=== PATIENT | female | born 1955 | race Caucasian/White ===

== ENCOUNTER 2017-05-16 09:33 | Inpatient (IN) | payer MEDICARE ==
[~2017-05-16] VITALS: Ht 167.6 cm; Wt 91.0 kg
[2017-05-16] VITALS (21 sets, daily range): BP systolic 114–211; BP diastolic 60–117; PULSE 101–134; RESP 12–24; TEMP 97.6–98.9; O2SAT 85–99
[2017-05-16] MEDS: SODIUM CHLOR 0.9% 1000 ML INJ 1,000 ML IV SCH ×2 (09:39→10:55)
[2017-05-16] MEDS ORDERED: SODIUM CHLOR 0.9% 1000 ML INJ 1,000 ML IV ONE (09:39)
[2017-05-16] MEDS ORDERED: SODIUM CHLORIDE 0.9% FLUSH 10 ML FLUSH IVF PRN (09:45)
[2017-05-16] MEDS ORDERED: MIDAZOLAM HCL 5 MG/ML VIAL (1 ML) IV PUSH ONE (09:45)
[2017-05-16] MEDS ORDERED: PROPOFOL 500 MG/50 ML BTL IV ONE ×2 (09:45→10:45)
[2017-05-16] MEDS ORDERED: PROPOFOL 200 MG/20 ML AMP IV ONE (09:45)
[2017-05-16] MEDS ORDERED: SUCCINYLCHOLINE CHLORIDE 200 MG/10 ML VIAL IV PUSH ONE (09:45)
[2017-05-16] MEDS ORDERED: ETOMIDATE 20 MG/10 ML VIAL IVP ONE (09:45)
[2017-05-16 10:11] LABS: CHLORIDE 96 MEQ/L (98-107); SODIUM (NA) 137 MEQ/L (136-145)
[2017-05-16 10:14] LABS: CALCIUM 8.2 MG/DL (8.5-10.1)
[2017-05-16 10:15] LABS: ALBUMIN 3.5 GM/DL (3.4-5.0); BICARBONATE 26.3 MEQ/L (21.0-32.0); BLOOD UREA NITROGEN 22 MG/DL (7-18); GLUCOSE,RANDOM 291 MG/DL (74-106)
[2017-05-16 10:16] LABS: AUTOMATED NEUTROPHIL # 26.2 TH/MM3 (1.8-7.7); BASOPHIL # 0.1 TH/MM3 (0-0.2); BASOPHIL % 0.4 % (0.0-2.0); EOSINOPHIL % 0.1 % (0.0-4.0); HEMOGLOBIN 13.7 GM/DL (11.6-15.3); LYMPH % 15.1 % (9.0-44.0); MEAN CELL VOLUME 88.2 FL (80.0-100.0); MEAN CORPUSCULAR HEMOGLOBIN 28.2 PG (27.0-34.0); MEAN PLATELET VOLUME 7.9 FL (7.0-11.0); MONO % 5.5 % (0.0-8.0); MONOCYTE # 1.8 TH/MM3 (0-0.9); NEUT % 78.9 % (16.0-70.0); PLATELET COUNT 394 TH/MM3 (150-450); RED BLOOD COUNT 4.87 MIL/MM3 (4.00-5.30); RED CELL DISTRIBUTION WIDTH 15.5 % (11.6-17.2); WHITE BLOOD COUNT 33.1 TH/MM3 (4.0-11.0)
[2017-05-16 10:18] LABS: ALT (GPT) 24 U/L (10-53); AST (GOT) 18 U/L (15-37); GLOMERULAR FILTRATION RATE 35 ML/MIN (>89)
[2017-05-16 10:19] LABS: TOTAL BILIRUBIN ADULT 0.1 MG/DL (0.2-1.0)
[2017-05-16 10:20] LABS: TOTAL PROTEIN 7.2 GM/DL (6.4-8.2)
[2017-05-16 10:21] LABS: ALKALINE PHOSPHATASE 110 U/L (45-117)
[2017-05-16 10:22] LABS: INTERNATIONAL NORMALIZED RATIO 0.9 RATIO; PROTHROMBIN TIME - PATIENT 9.4 SEC (9.8-11.6)
[2017-05-16 10:23] LABS: TROPONIN I 0.06 NG/ML (0.02-0.05)
--- NOTE | 2017-05-16 10:38 | RADRPT ---
EXAM DATE/TIME: 05/16/2017 10:07 [facility] COMPARISON: No previous studies available for comparison. INDICATIONS : Post Tube placement. MEDICAL HISTORY : None. SURGICAL HISTORY : None. ENCOUNTER: Initial ACUITY: 1 day PAIN SCORE: Non-responsive. LOCATION: Bilateral chest FINDINGS: An endotracheal tube has its tip 4 summer's above the abhinav. A nasogastric has tip below diaphragm. Diffuse pulmonary infiltrates are noted bilaterally consistent with moderate pulmonary edema versus p neumonia. The heart is mildly prominent. CONCLUSION: Diffuse pulmonary infiltrates bilaterally consistent with moderate pulmonary edema versus pneumonia. Nasir Stanton MD on May 16, 2017 at 10:35 Board Certified Radiologist. This report was verified electronically.
[2017-05-16 10:51] LABS: BANDS 1 % (0-6); LYMPHOCYTES 10 % (9-44); MONOCYTES 7 % (0-8); NEUTROPHIL # MANUAL DIFF 27.5 TH/MM3 (1.8-7.7); POLYS (SEG NEUTROPHILS) 82 % (16-70)
--- NOTE | 2017-05-16 10:56 | PD ---
HPI Chief Complaint: Respiratory Distress Time Seen by Provider: 09:39 Travel History International Travel<30 days: No Contact w/Intl Traveler<30days: No Traveled to known affect area: No History of Present Illness HPI The patient is approximately 58 years old and arrives by EMS due to altered mental status. She had a fall this morning and was unresponsive thus prompting EMS evaluation. On scene the patient was found to have a pulse however GCS was about 6. Assisted ventilations were performed and route to the ER. Patient is noted to have multiple sclerosis. The EMS end-tidal CO2 revealed levels in the 70s. O2 sat remained in the 80s en route here. History limited upon patient's arrival due to unresponsive state and lack of identification. [facility] Social History Tobacco Use: Yes (family reports 1PPD or greater smoking) Allergies-Medications (Allergen,Severity, Reaction): Coded Allergies: No Allergy Information Available (Unverified , 05/16/17) Review of Systems ROS Limitations: Clinical Condition, Altered Mental Status, Unresponsive Physical Exam Narrative GENERAL: Approximate 58-year-old female unresponsive GCS 4 (motor 2, eyes 1, verbal 1) SKIN: Warm and dry. HEAD: Atraumatic. Normocephalic. EYES: Pupils are about 1 cm bilaterally and responsive to light. There is a conjugate gaze. ENT: No nasal bleeding or discharge. Mucous membranes pink and moist. Bloody frothy sputum is noted. NECK: Trachea midline. No JVD. CARDIOVASCULAR: Tachycardia approximately 130. Regular rhythm. RESPIRATORY: Patient's breathing about 30 breaths a minute. Frothy sputum again noted with blood tingeing. GASTROINTESTINAL: Abdomen soft, non-tender, nondistended. Hepatic and splenic margins not palpable. MUSCULOSKELETAL: Extremities without clubbing, cyanosis, or edema. No obvious deformities. NEUROLOGICAL: GCS 4 (motor 2, eyes 1, verbal 1). Occasional flexion-extension of the right lower extremity observe. Pupils reactive to light. Jaw flexion observed with attempts to intubate. PSYCHIATRIC: Appropriate mood and affect; insight and judgment normal. Data Data Last Documented VS Vital Signs Date Time Temp Pulse Resp B/P (MAP) Pulse Ox O2 Delivery O2 Flow Rate FiO2 05/16/17 11:40 96 100 05/16/17 11:27 134 207/118 05/16/17 11:00 18 Ventilator 05/16/17 10:30 97.6 Orders Orders Chest, Single Ap (05/16/17:39) Arterial Blood Gas (Abg) (05/16/17:39) Ecg Monitoring (05/16/17:39) Iv Access Insert/Monitor (05/16/17:39) Ng Gastric Tube Insert/Monitor (05/16/17:39) Urinary Catheter Insert/Apply (05/16/17:39) Oximetry (05/16/17:39) Oxygen Administration (05/16/17:39) Etomidate Inj (Amidate Inj) (05/16/17:45) Fentanyl Inj (Fentanyl Inj) (05/16/17:45) Succinylcholine Inj (Quelicin Inj) (05/16/17:45) Midazolam Inj (Versed Inj) (05/16/17:45) Sodium Chloride 0.9% Flush (Ns Flush) (05/16/17:45) Sodium Chlor 0.9% 1000 Ml Inj (Ns 1000 M (05/16/17:39) Restraints Non-Violent AMAN.Q3H (05/16/17:39) Electrocardiogram (05/16/17:39) Ammonia (05/16/17:39) Complete Blood Count With Diff (05/16/17:39) Comprehensive Metabolic Panel (05/16/17:39) Creatine Kinase (Cpk) (05/16/17:39) Prothrombin Time / Inr (Pt) (05/16/17:39) Act Partial Throm Time (Ptt) (05/16/17:39) Troponin I (05/16/17:39) Thyroid Stimulating Hormone (05/16/17:39) Lactic Acid Sepsis Protocol (05/16/17:39) Blood Culture (05/16/17:39) Ct Brain W/O Iv Contrast(Rout) (05/16/17:39) Sodium Chloride 0.9% Flush (Ns Flush) (05/16/17:45) Sodium Chlor 0.9% 1000 Ml Inj (Ns 1000 M (05/16/17 09:39) B-Type Natriuretic Peptide (05/16/17:39) Drug Screen, Random Urine (05/16/17:39) Alcohol (Ethanol) (3/25/18 09:39) Salicylates (Aspirin) (05/16/17 09:39) Tylenol (Acetaminophen) (05/16/17 09:39) Propofol 200 Mg/20 Ml Inj (Diprivan 200 (05/16/17 09:45) Ct Pulmonary Angiogram (05/16/17 09:39) Albuterol-Ipratropium Neb (Duoneb Neb) (05/16/17 09:45) Propofol 500 Mg/50 Ml Inj (Diprivan 500 (05/16/17 09:45) Ct Abd/Pel W Iv Contrast(Rout) (05/16/17 ) Propofol 500 Mg/50 Ml Inj (Diprivan 500 (05/16/17 10:45) Cefepime Inj (Maxipime Inj) (05/16/17 11:00) Vancomycin Inj (Vancomycin Inj) (05/16/17 11:00) Furosemide Inj (Lasix Inj) (05/16/17 11:00) Nitroglycerin-D5w 50 Mg/250 Ml (Nitrogly (05/16/17 11:00) Influenzae A/B Antigen (05/16/17 11:38) Sputum Culture And Gram Stain (05/16/17 11:38) Admit Order (Ed Use Only) (05/16/17 ) Supervisor Stave Cutting / Telemetry AMAN.Q8H (05/16/17 11:39) Vital Signs (Adult) Q4H (05/16/17 11:39) Diet Npo (05/16/17 Lunch) Activity Bed Rest (05/16/17 11:39) Notify Dr: Other (05/16/17 11:39) Labs Laboratory Tests Test 05/16/17 09:30 05/16/17 09:50 05/16/17 10:25 White Blood Count 33.1 TH/MM3 Red Blood Count 4.87 MIL/MM3 Hemoglobin 13.7 GM/DL Hematocrit 43.0 % Mean Corpuscular Volume 88.2 FL Mean Corpuscular Hemoglobin 28.2 PG Mean Corpuscular Hemoglobin Concent 32.0 % Red Cell Distribution Width 15.5 % Platelet Count 394 TH/MM3 Mean Platelet Volume 7.9 FL Neutrophils (%) (Auto) 78.9 % Lymphocytes (%) (Auto) 15.1 % Monocytes (%) (Auto) 5.5 % Eosinophils (%) (Auto) 0.1 % Basophils (%) (Auto) 0.4 % Neutrophils # (Auto) 26.2 TH/MM3 Lymphocytes # (Auto) 5.0 TH/MM3 Monocytes # (Auto) 1.8 TH/MM3 Eosinophils # (Auto) 0.0 TH/MM3 Basophils # (Auto) 0.1 TH/MM3 CBC Comment AUTO DIFF Differential Total Cells Counted 100 Neutrophils % (Manual) 82 % Band Neutrophils % 1 % Lymphocytes % 10 % Monocytes % 7 % Neutrophils # (Manual) 27.5 TH/MM3 Differential Comment FINAL DIFF MANUAL Prothrombin Time 9.4 SEC Prothromb Time International Ratio 0.9 RATIO Activated Partial Thromboplast Time 19.7 SEC Blood Urea Nitrogen 22 MG/DL Creatinine 1.30 MG/DL Random Glucose 291 MG/DL Total Protein 7.2 GM/DL Albumin 3.5 GM/DL Calcium Level 8.2 MG/DL Alkaline Phosphatase 110 U/L Aspartate Amino Transf (AST/SGOT) 18 U/L Alanine Aminotransferase (ALT/SGPT) 24 U/L Total Bilirubin 0.1 MG/DL Sodium Level 137 MEQ/L Potassium Level 4.1 MEQ/L Chloride Level 96 MEQ/L Carbon Dioxide Level 26.3 MEQ/L Anion Gap 15 MEQ/L Estimat Glomerular Filtration Rate 35 ML/MIN Total Creatine Kinase 59 U/L Troponin I 0.06 NG/ML B-Type Natriuretic Peptide 840 PG/ML Thyroid Stimulating Hormone 3rd Gen 0.891 uIU/ML Salicylates Level 5.7 MG/DL Acetaminophen Level 8.7 MCG/ML Ethyl Alcohol Level LESS THAN 3 MG/DL Urine Opiates Screen POS Urine Barbiturates Screen NEG Urine Amphetamines Screen NEG Urine Benzodiazepines Screen POS Urine Cocaine Screen NEG Urine Cannabinoids Screen POS Blood Gas Puncture Site LT RADIAL Blood Gas Patient Temperature 98.6 Blood Gas HCO3 29 mmol/L Blood Gas Base Excess 1.6 mmol/L Blood Gas Oxygen Saturation 86 % Arterial Blood pH 7.22 Arterial Blood Partial Pressure CO2 73 mmHG Arterial Blood Partial Pressure O2 75 mmHG Arterial Blood Oxygen Content 16.4 Vol % Arterial Blood Carboxyhemoglobin 3.6 % Arterial Blood Methemoglobin 1.7 % Blood Gas Hemoglobin 13.6 G/DL Oxygen Delivery Device VENTILATOR Blood Gas Ventilator Setting PRVC/AC Blood Gas Inspired Oxygen 100 % MDM Medical Decision Making Medical Screen Exam Complete: Yes Emergency Medical Condition: Yes Medical Record Reviewed: Yes Differential Diagnosis Sepsis, pneumonia, UTI, polypharmacy, hypercapnic respiratory failure, coronary disease, PE, CHF Narrative Course CBC & BMP Diagram 05/16/17 09:30 Total Protein 7.2, Albumin 3.5, Calcium Level 8.2 L, Alkaline Phosphatase 110, Aspartate Amino Transf (AST/SGOT) 18, Alanine Aminotransferase (ALT/SGPT) 24, Total Bilirubin 0.1 L Tn < 0.06 BNP 840 TSH 0.891 AB./29 ABG pO2 75 FIO2 100% UTOX positive for opiates, benzodiazepine and cannabinoids EKG shows sinus tachycardia with a rate of approximately 130 CT thorax shows extensive consolidation with or without pulmonary edema CT abdomen shows no acute disease CT head shows no small air fluid level in the sphenoid sinus with no acute disease otherwise Patient intubated upon arrival. The pulse has decreased from about 130 to approximately 100. The patient received propofol for sedation. Blood pressure remained somewhat high until Versed and fentanyl were given. Subsequently nitro drip was started when the patient was seen to be in CHF. Patient had received a liter of saline as part of standard resuscitative protocol which was DC'd. Cefepime and Vanco started. RIJ Central Line started case d/w Dr [place] Critical Care Narrative Aggregate critical care time was 45 minutes. Time to perform other separately billable procedures was not included in the critical care time. My time did not include minutes spent treating any other patients simultaneously or on activities that did not directly contribute to the patient's treatment. The services I provided to this patient were to treat and/or prevent clinically significant deterioration that could result in: Cardiopulmonary arrest, multiorgan dysfunction syndrome I provided critical care services requiring my management, as noted below: Chart data review, documentation time, medication orders and management, vital sign assessments/reviewing monitor data, ordering and reviewing lab tests, ordering and interpreting/reviewing x-rays and diagnostic studies, care of the patient and discussion of the patient with the admitting physicians. Procedures Procedure Narrative CENTRAL VENOUS LINE: The site was prepped with Betadine and sterilely draped. It was infiltrated with 1% lidocaine plain. The deep vein was cannulated using normal Seldinger technique. A 3 lumen central line was placed in the right IJ site and secured with simple interrupted suture. The site was sterilely dressed. The patient tolerated the procedure well. After the risks and benefits were discussed the following procedure was performed: INTUBATION: The patient was put in optimal position for the procedure. Rapid sequence intubation was initiated by me using 20 milligrams of etomidate IV and 100 milligrams of succinylcholine IV. The patient was intubated with a 7-5 cuffed endotracheal tube. Tube placement was confirmed by visualization of the tube and balloon passing through the cords, capnometry and subsequent chest x-ray. Breath sounds were equal and well aerated bilaterally postintubation. No breath sounds over stomach. Patient tolerated procedure well. Diagnosis Primary Impression: Respiratory failure Qualified Codes: J96.22 - Acute and chronic respiratory failure with hypercapnia Additional Impressions: Hypercapnic respiratory failure Qualified Codes: J96.22 - Acute and chronic respiratory failure with hypercapnia PNA (pneumonia) Qualified Codes: J18.9 - Pneumonia, unspecified organism Altered mental status Qualified Codes: R41.82 - Altered mental status, unspecified Sepsis Qualified Codes: A41.9 - Sepsis, unspecified organism Polypharmacy Admitting Information Admitting Physician Requests: Rell Sánchez MD May 16, 2017 10:56
[2017-05-16] MEDS ORDERED: VANCOMYCIN INJ 1,500 MG in SODIUM CHLORID 0.9% 500 ML INJ 500 ML IV ONE (11:00)
[2017-05-16] MEDS ORDERED: NITROGLYCERIN-D5W 50 MG/250 ML 250 ML IV PRN (11:00)
[2017-05-16] MEDS ORDERED: CEFEPIME INJ 2,000 MG in SODIUM CHLORIDE 0.9% INJ 100 ML IV ONE (11:00)
[2017-05-16] MEDS ORDERED: FUROSEMIDE 40 MG/4 ML VIAL IV PUSH ONE (11:00)
[2017-05-16 11:18] LABS: ACETAMINOPHEN 8.7 MCG/ML (10.0-30.0)
--- NOTE | 2017-05-16 12:28 | RADRPT ---
EXAM DATE/TIME: 05/16/2017 11:49 [facility] COMPARISON: No previous studies available for comparison. INDICATIONS : Found unresponsive. RADIATION DOSE: 64.87 CTDIvol (mGy) MEDICAL HISTORY : Non-responsive. SURGICAL HISTORY : Non-responsive. ENCOUNTER: Initial ACUITY: 1 day PAIN SCALE: Non-responsive LOCATION: cranial TECHNIQUE: Multiple contiguous axial images were obtained of the head. Using automated exposure control and adj ustment of the mA and/or kV according to patient size, radiation dose was kept as low as reasonably a chievable to obtain optimal diagnostic quality images. DICOM format image data is available electro nically for review and comparison. FINDINGS: CEREBRUM: Old lacunar infarct is noted within the left thalamus. Tiny old lacunar infarct is also noted within the right putamen. Moderate periventricular and subcortical white matter small vessel ischemic change s are noted bilaterally. No acute infarct, acute hemorrhage, midline shift or extra axial fluid colle ctions are noted. POSTERIOR FOSSA: The cerebellum and brainstem are intact. The 4th ventricle is midline. The cerebellopontine angle i s unremarkable. EXTRACRANIAL: The visualized portion of the orbits is intact. Small fluid level is noted within the left sphenoid s inus. SKULL: The calvaria is intact. No evidence of skull fracture. CONCLUSION: 1. 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 2. Moderate periventricular and subcortical white matter small vessel ischemic changes bilaterally. 3. No acute infarct, acute hemorrhage, midline shift or extra-axial fluid collections. 4. Small fluid level within the left sphenoid sinus. Nasir Stanton MD on May 16, 2017 at 12:23 Board Certified Radiologist. This report was verified electronically.
[2017-05-16] MEDS ORDERED: IODIXANOL 320 MG/ML 10 ML VIAL (for Rad CT) OTHER ONE (12:29)
--- NOTE | 2017-05-16 12:37 | RADRPT ---
EXAM DATE/TIME: 05/16/2017 12:00 [facility] COMPARISON: No previous studies available for comparison. INDICATIONS : Found unresponsive. IV CONTRAST: 50 cc Visipaque (iodixanol) IV ; Cumulative dose for multiple exams. RADIATION DOSE: 24.72 CTDIvol (mGy) ; Patient body habitus MEDICAL HISTORY : Non-responsive. SURGICAL HISTORY : Non-responsive. ENCOUNTER: Initial ACUITY: 1 day PAIN SCALE: Non-responsive LOCATION: Bilateral chest TECHNIQUE: Volumetric scanning of the chest was performed using a pulmonary embolism protocol MIP images were re constructed. Using automated exposure control and adjustment of the mA and/or kV according to patien t size, radiation dose was kept as low as reasonably achievable to obtain optimal diagnostic quality images. DICOM format image data is available electronically for review and comparison. Follow-up recommendations for detected pulmonary nodules are based at a minimum on nodule size and pa tient risk factors according to Fleischner Society Guidelines. FINDINGS: PULMONARY ARTERIES: No filling defects are seen in the pulmonary arteries through the segmental level. LUNGS: Diffuse alveolar consolidations are noted bilaterally consistent with severe pulmonary edema versus p neumonia. Clinical correlation is recommended. The PLEURAE: Tiny bilateral pleural effusions are noted. MEDIASTINUM: There is good visualization of the great vessels of the middle mediastinum. No evidence of mediastin al or hilar adenopathy/mass. The heart is enlarged. Coronary artery calcifications are noted. An endo tracheal tube has its tip in good position approximately 5 cm above the abhinav. A nasogastric tube is noted below the diaphragm. Right internal jugular central line has its tip in superior vena cava. MUSCULOSKELETAL: Within normal limits for patient age. MISCELLANEOUS: The visualized upper abdominal organs demonstrate no acute abnormality. Tiny thyroid nodules are note d bilaterally. CONCLUSION: 1. No evidence of pulmonary embolism. 2. Severe diffuse alveolar consolidations bilaterally consistent with severe pulmonary edema versus p neumonia. Clinical correlation is recommended. 3. Cardiomegaly. 4. Tiny bilateral pleural effusions. 5. Coronary artery calcifications. 6. Several thyroid nodules bilaterally. Nasir Stanton MD on May 16, 2017 at 12:30 Board Certified Radiologist. This report was verified electronically.
--- NOTE | 2017-05-16 12:46 | RADRPT ---
EXAM DATE/TIME: 05/16/2017 12:00 [facility] COMPARISON: No previous studies available for comparison. INDICATIONS : Found unresponsive. IV CONTRAST: 50 cc Visipaque (iodixanol) IV ; Cumulative dose for multiple exams. ORAL CONTRAST: No oral contrast ingested. RADIATION DOSE: 21.96 CTDIvol (mGy) MEDICAL HISTORY : Non-responsive. SURGICAL HISTORY : Orthopedic surgery. ENCOUNTER: Initial ACUITY: 1 day PAIN SCALE: Non-responsive LOCATION: pelvis abdomen TECHNIQUE: Volumetric scanning of the abdomen and pelvis was performed. Using automated exposure control and ad justment of the mA and/or kV according to patient size, radiation dose was kept as low as reasonably achievable to obtain optimal diagnostic quality images. DICOM format image data is available electro nically for review and comparison. FINDINGS: LOWER LUNGS: Severe diffuse alveolar consolidations are noted consistent with severe pulmonary edema or pneumonia. Tiny pleural effusions are noted bilaterally. The heart is enlarged. LIVER: Homogeneous density without lesion. There is no dilation of the biliary tree. No calcified gallston es. SPLEEN: Normal size without lesion. PANCREAS: Within normal limits. KIDNEYS: Normal in size and shape. There is no mass, stone or hydronephrosis. ADRENAL GLANDS: Within normal limits. VASCULAR: There is no aortic aneurysm. BOWEL/MESENTERY: Uncomplicated colonic diverticulosis is noted. No acute diverticulitis is noted. ABDOMINAL WALL: Within normal limits. RETROPERITONEUM: There is no lymphadenopathy. BLADDER: A Lonogria catheter is noted within the urinary bladder which is nondistended. REPRODUCTIVE: Within normal limits. INGUINAL: There is no lymphadenopathy or hernia. MUSCULOSKELETAL: Degenerative changes and scoliosis of the thoraco-lumbar spine are noted. CONCLUSION: 1. Extensive alveolar consolidations of the lungs consistent with severe pulmonary edema versus pneum onia. 2. Small pleural effusions bilaterally. 3. Cardiomegaly. 4. Uncomplicated colonic diverticulosis. 5. Degenerative changes and scoliosis of the thoracolumbar spine. Nasir Stanton MD on May 16, 2017 at 12:40 Board Certified Radiologist. This report was verified electronically.
[2017-05-16] MEDS ORDERED: MIDAZOLAM HCL 2 MG/2 ML VIAL IV PUSH ONE (14:00)
[2017-05-16] MEDS: RESP: ALBUTEROL 2.5 MG/IPRATROPIUM 0.5 MG NEB (SCH) INH ×4 (14:26→20:55)
[2017-05-16] MEDS ORDERED: MISCELLANEOUS NURSING INFORMATION XX SCH (15:00)
[2017-05-16] MEDS ORDERED: SENNOSIDES 8.6 MG TAB PO PRN (15:00)
[2017-05-16] MEDS ORDERED: GLUCAGON 1 MG/ML VIAL OTHER PRN (15:00)
[2017-05-16] MEDS ORDERED: CHLORHEXIDINE GLUCONATE 2 % 1 PACK (2 CLOTHS) TOP PRN (15:00)
[2017-05-16] MEDS ORDERED: MAGNESIUM HYDROXIDE SUSP 30 ML CUP PO PRN (15:00)
[2017-05-16] MEDS ORDERED: DEXTROSE 50% IN WATER 50 ML VIAL(D50) IV PUSH PRN (15:00)
[2017-05-16] MEDS ORDERED: Vancomycin Consult Pharmacy 1 EA OTHER SCH (15:00)
[2017-05-16] MEDS ORDERED: METOPROLOL TARTRATE 50 MG TAB PO SCH (15:00)
[2017-05-16] MEDS ORDERED: LACTULOSE SYRUP 20 GM/30 ML CUP PO PRN (15:00)
[2017-05-16] MEDS: DILTIAZEM HCL 60 MG TAB PO SCH ×3 (15:55→23:52)
[2017-05-16] MEDS: fentaNYL DRIP 250 ML IV PRN ×2 (15:55→23:51)
[2017-05-16] MEDS: FUROSEMIDE 40 MG/4 ML VIAL IV PUSH SCH ×2 (15:56→17:21)
[2017-05-16] MEDS ORDERED: BISACODYL 10 MG SUPP RECTAL PRN (16:00)
[2017-05-16] MEDS: INSULIN NovoLIN REGULAR SUPPLEMENTAL SCALE SQ SCH ×3 (16:00→23:52)
[2017-05-16] MEDS: AZITHROMYCIN INJ 500 MG in SODIUM CHLOR 0.9% 250 ML INJ 250 ML IV SCH (16:07)
[2017-05-16] MEDS: HEPARIN SODIUM - SQ 10,000 UNITS/ML VIAL SQ SCH (16:09)
[2017-05-16] MEDS: PIPERACIL-TAZO 4.5 GM PREMIX 100 ML IV SCH ×2 (16:10→20:50)
[2017-05-16] MEDS: FAMOTIDINE 20 MG/2 ML VIAL IV PUSH SCH ×2 (16:12→20:51)
--- NOTE | 2017-05-16 16:34 | MH ---
cc: Carole Boston MD DATE OF ADMISSION: 05/16/2017 HISTORY OF PRESENT ILLNESS: The patient is an approximately [id number] female who presented to [facility] via EMS for altered mental status. According to ED records, patient had a fall this morning and was unresponsive on scene. On scene, she was found to have a GCS score of 6. The patient has a history of multiple sclerosis. On arrival to the ER, the patient was hypoxic with O2 saturation in the 80s and unresponsive. She was intubated and placed on full mechanical ventilation. In addition, she was started on a Diprivan infusion for sedation. On arrival to the ED, she was hypertensive with a systolic blood pressure 170s-200s and tachycardic with heart rate of 120s-130s. Her initial ABG post-intubation showed acute hypercapnic and hypoxemic respiratory acidosis with a pH of 7.22, CO2 of 73, PaO2 of 75, and bicarbonate of 29. A repeat ABG was done at 12:45, which showed some improvement in her respiratory acidosis with a pH of 7.28, CO2 of 66 on PRVC mode, tidal volume 500, respiratory rate of 18, I time 1.0, PEEP of 10 and 100% FIO2. Her initial chest x-ray in the ER showed diffuse bilateral pulmonary infiltrates consistent with moderate pulmonary edema versus pneumonia. She subsequently underwent CT angiogram of the chest, which showed no evidence of pulmonary embolism; however, it showed severe diffuse alveolar consolidations, tiny bilateral pleural effusions and several thyroid nodules. Also, she had CT brain, which showed no acute infarct, hemorrhage, or midline shift. CT scan of the abdomen and pelvis was obtained as well, which showed colonic diverticulosis, small pleural effusions and extensive alveolar consolidation of the lungs at the bases. In the ER, she was given cefepime, vancomycin, fentanyl, Versed, bronchodilator treatment and placed on nitroglycerine drip. Her laboratory data is significant for a leukocytosis with a WBC of 33.1, BNP of 840 with troponin 0.06. Her lactic acid level measured at 1.3. The patient was transferred to [facility], room 518. When seen, she was on Diprivan for sedation, hypertensive and tachycardic. Her urine drug screen was positive for cannabinoids, benzodiazepines, and opiates. PAST MEDICAL HISTORY: Significant for multiple sclerosis per records, no other information available. PAST SURGICAL HISTORY: Unknown. FAMILY HISTORY: Unknown. SOCIAL HISTORY: Smoker, per ED records. ALLERGIES: UNKNOWN. MEDICATIONS: Unknown. REVIEW OF SYSTEMS: Unobtainable. No family members present at the bedside. PHYSICAL EXAMINATION: GENERAL: The patient is a [id number] female, intubated for respiratory failure. VITAL SIGNS: Temperature 97.6, pulse of 128-130, respiratory rate of 18, blood pressure 134/86, saturation 97%. Vent setting PRVC, respiratory rate of 18, tidal volume 500, I time 1, PEEP 10, FIO2 100%. HEENT: Atraumatic, normocephalic. Pupils are equal, round, reactive to light and accommodation. Extraocular muscles intact. Conjunctivae pink. Nonicteric sclerae. Oral mucosa within normal. NECK: Supple. No JVD, adenopathy or thyromegaly. Trachea in the midline. CARDIOVASCULAR: Tachycardic. Normal S1, S2. No murmurs, rubs or gallops noted. LUNGS: Diffuse coarse breath sounds and rhonchi. ABDOMEN: Soft, nontender. No distention. Positive bowel sounds. EXTREMITIES: No cyanosis, clubbing, edema. NEUROLOGIC: Intubated, sedated. LABORATORY DATA: EKG showed sinus tachycardia with heart rate 129 beats per minute, nonspecific T-wave abnormalities. Sodium 137, potassium 4.1, chloride 96, CO2 of 26, BUN 22, creatinine 1.30, glucose of 291. Lactic acid 1.3, total bilirubin 0.1, AST 18, ALT 24, alkaline phosphatase 110, ammonia 43. Troponin 0.06. Total CK 59. BNP 840. TSH 0.89. Albumin 3.5. WBC 33.1, hemoglobin 13.7, hematocrit 43, platelet count 394. INR 0.9, PT 9.4, PTT 19.7. Urine drug screen positive for opiates, benzodiazepines, cannabinoids. Radiographic studies are reviewed, as stated above. IMPRESSION: 1. Acute hypoxemic and hypercapnic respiratory failure requiring incubation. 2. Diffuse alveolar consolidation. Differential diagnosis pulmonary edema versus infectious process. 3. Acute respiratory distress syndrome. 4. Leukocytosis. 5. Hyperglycemia. 6. Mild acute kidney injury. 7. Hypertensive urgency. 8. Polysubstance abuse with urine drug screen positive for cannabinoids, opiates and benzodiazepines. 9. History of multiple sclerosis. RECOMMENDATIONS: 1. Continue with Diprivan infusion for sedation. We will add fentanyl drip for vent synchrony. Daily sedation vacation when appropriate. A CT scan of the brain in the ED negative for acute intracranial process and her urine drug screen positive for opiates, benzodiazepines and cannabinoids. 2. Continue with vent support and maintain sats above 92%. Bronchodilators in the form of DuoNeb q. 6 and will initiate ICU vent bundle. Increase respiratory rate to 24 and repeat ABG. Decrease FIO2 as tolerated. 3. Check chest x-ray in a.m. Place on Cardizem 60 mg q. 6. Monitor heart rate and blood pressure closely and maintain MAP greater than 65 mmHg. Lactic acid level measured 1.3. 4. Monitor troponins. Initial troponin 0.06, likely secondary to severe hypoxemia. We obtain 2-D echo to evaluate LV function and to rule out structural wall abnormalities. We will diurese with Lasix 40 mg IV q. 12 and monitor BNP. 5. Monitor renal function, I's and O's and electrolyte replacement as needed. IV diuretics as stated above. 6. Keep n.p.o. for now and place on Pepcid 20 mg IV q. 12 hours for GI prophylaxis. 7. We will continue with broad spectrum antibiotics in the form of vancomycin, Zosyn and azithromycin. Monitor for signs of infection, which include fever and WBC. Follow up on blood and sputum cultures. Nasal washing in the ED negative for influenza. We will obtain strep pneumonia and legionella urinary antigen. Monitor for signs of infection, which include fever and WBC. 8. Place on medium scale sliding scale insulin for glycemic control. TSH level measured at 0.89. 9. Start nutrition support within the next 24 hours if the patient remains intubated. 10. Monitor CBC. 11. Gastrointestinal prophylaxis with Pepcid and DVT prophylaxis with SCDs and heparin subq. 12. Right IJ central line was placed by the ED physician. 13. Further recommendations will be based on hospital course. The patient is critically ill with respiratory failure and severe hypoxemia, ARDS, acute kidney injury, pulmonary edema and pneumonia. CRITICAL CARE TIME: 40 minutes, excluding procedures. MD MANI Bellamy/LADI , 03:55 PM , 04:33 PM
[2017-05-16 16:45] LABS: AUTOMATED NEUTROPHIL # 31.6 TH/MM3 (1.8-7.7); BASOPHIL % 0.1 % (0.0-2.0); HEMATOCRIT 43.4 % (35.0-46.0); HEMOGLOBIN 14.8 GM/DL (11.6-15.3); LYMPH % 5.1 % (9.0-44.0); LYMPHOCYTE # 1.8 TH/MM3 (1.0-4.8); MEAN CELL VOLUME 87.9 FL (80.0-100.0); MEAN CORPUSCULAR HGB CONC 34.1 % (32.0-36.0); MEAN PLATELET VOLUME 7.6 FL (7.0-11.0); MONO % 7.8 % (0.0-8.0); MONOCYTE # 2.9 TH/MM3 (0-0.9); PLATELET COUNT 341 TH/MM3 (150-450); RED BLOOD COUNT 4.93 MIL/MM3 (4.00-5.30); RED CELL DISTRIBUTION WIDTH 15.9 % (11.6-17.2); WHITE BLOOD COUNT 36.3 TH/MM3 (4.0-11.0)
[2017-05-16 17:12] LABS: BASOPHILS 1 % (0-2); LYMPHOCYTES 2 % (9-44); MONOCYTES 7 % (0-8); MYELOCYTES 1 % (0-0); NEUTROPHIL # MANUAL DIFF 32.7 TH/MM3 (1.8-7.7); POLYS (SEG NEUTROPHILS) 89 % (16-70)
[2017-05-16 17:14] LABS: BICARBONATE 33.7 MEQ/L (21.0-32.0); CALCIUM 8.7 MG/DL (8.5-10.1); CREATININE 1.22 MG/DL (0.50-1.00); MAGNESIUM 2.6 MG/DL (1.5-2.5); PHOSPHORUS 4.6 MG/DL (2.5-4.9)
[2017-05-16] MEDS: LACTULOSE SYRUP 20 GM/30 ML CUP PO SCH (17:21)
[2017-05-16 17:25] LABS: TROPONIN I 0.73 NG/ML (0.02-0.05)
[2017-05-16] MEDS: VANCOMYCIN INJ 1,500 MG in SODIUM CHLORID 0.9% 500 ML INJ 500 ML IV SCH (17:27)
[2017-05-16] MEDS ORDERED: SODIUM PHOSPHATE INJ 30 MMOL in SODIUM CHLOR 0.9% 250 ML INJ 240 ML IV PRN (17:30)
[2017-05-16] MEDS ORDERED: POTASSIUM PHOSPHATE MONOBASIC 500 MG TAB PO PRN (17:30)
[2017-05-16] MEDS ORDERED: POTASSIUM CHLOR 40 MEQ PREMIX 100 ML IV PRN (17:30)
[2017-05-16] MEDS ORDERED: POTASSIUM PHOSPHATE INJ 30 MMOL in SODIUM CHLOR 0.9% 250 ML INJ 250 ML IV PRN (17:30)
[2017-05-16] MEDS ORDERED: POTASSIUM CHLOR 20 MEQ PREMIX 100 ML IV PRN ×2 (17:30)
[2017-05-16] MEDS ORDERED: POTASSIUM PHOSPHATE MONOBASIC 500 MG TAB PO/TUBE PRN (17:30)
[2017-05-16] MEDS ORDERED: POTASSIUM CHLORIDE 25 MEQ EFFERVESCENT TAB PO PRN (17:30)
[2017-05-16] MEDS ORDERED: MAGNESIUM SULFATE INJ 4 GM in SODIUM CHLORIDE 0.9% INJ 92 ML IV PRN (17:30)
[2017-05-16] MEDS ORDERED: MAGNESIUM OXIDE 400 MG TAB PO PRN (17:30)
[2017-05-16] MEDS ORDERED: MAGNESIUM SULFATE INJ 2 GM in SODIUM CHLORIDE 0.9% INJ 96 ML IV PRN (17:30)
--- NOTE | 2017-05-16 19:41 | EKG ---
Date Performed: 05/16/2017 Time Performed: 10:15:39 PTAGE: 89 years EKG: SINUS TACHYCARDIA NONSPECIFIC T-WAVE ABNORMALITY Since the previous tracing, no significant change noted ABNORMAL RHYTHM ECG NO PREVIOUS TRACING DOCTOR: Thaddeus Swanson Interpretating Date/Time 05/16/2017 19:41:02
[2017-05-16] MEDS: CHLORHEXIDINE 0.12% (ORAL KIT) 15 ML CUP MT SCH (20:00)
[2017-05-16] MEDS: DOCUSATE SODIUM 50 MG/SENNA 8.6 MG TAB PO SCH (20:50)
[2017-05-16 21:54] LABS: PHOSPHORUS 3.9 MG/DL (2.5-4.9)
[2017-05-16 22:17] LABS: TROPONIN I 1.08 NG/ML (0.02-0.05)
[2017-05-17] VITALS (15 sets, daily range): BP systolic 101–180; BP diastolic 51–80; PULSE 96–165; RESP 14–24; TEMP 98–98.4; O2SAT 95–100
[2017-05-17] MEDS: INSULIN NovoLIN REGULAR SUPPLEMENTAL SCALE SQ SCH ×6 (04:00→23:18)
[2017-05-17] MEDS: HEPARIN SODIUM - SQ 10,000 UNITS/ML VIAL SQ SCH ×2 (04:00→15:10)
[2017-05-17] MEDS: CHLORHEXIDINE GLUCONATE 2 % 1 PACK (2 CLOTHS) TOP SCH (04:00)
--- NOTE | 2017-05-17 04:07 | RADRPT ---
EXAM DATE/TIME: 05/17/2017 03:21 [facility] COMPARISON: CHEST SINGLE AP, May 16, 2017, 10:07. INDICATIONS : Shortness of breath, possible pulmonary disease. MEDICAL HISTORY : None. SURGICAL HISTORY : None. ENCOUNTER: Subsequent ACUITY: 2 days PAIN SCORE: Non-responsive. LOCATION: Bilateral chest FINDINGS: A single view of the chest demonstrates bilateral pulmonary infiltrates greater left. Slightly impro reagan. Endotracheal tube and nasogastric tube unchanged. Osseous structures are intact. CONCLUSION: Bilateral airspace disease greater left lung, slightly improved. Duane Feldman MD on May 17, 2017 at 4:03 Board Certified Radiologist. This report was verified electronically.
[2017-05-17] MEDS: RESP: ALBUTEROL 2.5 MG/IPRATROPIUM 0.5 MG NEB (SCH) INH ×4 (04:20→20:44)
[2017-05-17] MEDS: DILTIAZEM HCL 60 MG TAB PO SCH ×4 (04:53→23:32)
[2017-05-17] MEDS: PIPERACIL-TAZO 4.5 GM PREMIX 100 ML IV SCH ×4 (04:53→20:50)
[2017-05-17 05:43] LABS: ALBUMIN 2.6 GM/DL (3.4-5.0); ALT (GPT) 17 U/L (10-53); AST (GOT) 12 U/L (15-37); BICARBONATE 33.8 MEQ/L (21.0-32.0); BLOOD UREA NITROGEN 20 MG/DL (7-18); CALCIUM 8.4 MG/DL (8.5-10.1); CHLORIDE 103 MEQ/L (98-107); CREATININE 1.11 MG/DL (0.50-1.00); GLOMERULAR FILTRATION RATE 49 ML/MIN (>89); GLUCOSE,RANDOM 140 MG/DL (74-106); MAGNESIUM 2.1 MG/DL (1.5-2.5); PHOSPHORUS 3.1 MG/DL (2.5-4.9); SODIUM (NA) 143 MEQ/L (136-145)
[2017-05-17 05:44] LABS: ALKALINE PHOSPHATASE 88 U/L (45-117); TOTAL BILIRUBIN ADULT 0.4 MG/DL (0.2-1.0); TOTAL PROTEIN 5.8 GM/DL (6.4-8.2)
[2017-05-17 06:10] LABS: AUTOMATED NEUTROPHIL # 13.2 TH/MM3 (1.8-7.7); EOSINOPHIL % 0.2 % (0.0-4.0); HEMATOCRIT 36.2 % (35.0-46.0); HEMOGLOBIN 11.8 GM/DL (11.6-15.3); LYMPH % 8.3 % (9.0-44.0); LYMPHOCYTE # 1.3 TH/MM3 (1.0-4.8); MEAN CELL VOLUME 87.5 FL (80.0-100.0); MEAN CORPUSCULAR HEMOGLOBIN 28.7 PG (27.0-34.0); MEAN CORPUSCULAR HGB CONC 32.8 % (32.0-36.0); MEAN PLATELET VOLUME 7.8 FL (7.0-11.0); MONO % 9.5 % (0.0-8.0); MONOCYTE # 1.5 TH/MM3 (0-0.9); PLATELET COUNT 194 TH/MM3 (150-450); RED BLOOD COUNT 4.13 MIL/MM3 (4.00-5.30); RED CELL DISTRIBUTION WIDTH 15.5 % (11.6-17.2); WHITE BLOOD COUNT 16.1 TH/MM3 (4.0-11.0)
--- NOTE | 2017-05-17 08:46 | MB ---
cc: Nirmal Montgomery MD DATE: 05/17/2017 HISTORY OF PRESENT ILLNESS: She is a 62-year-old woman seen in neurological consultation. She apparently has a history of multiple sclerosis. She was admitted initially as a Michelle Pablo, apparently became poorly responsive and had to be intubated. She had a white count of 33.1 yesterday and the patient had a CT brain showing old infarcts in the left thalamus and the right putamen, microvascular disease. Additional history is not available. In talking to the patient, she admits the diagnosis of multiple sclerosis. She takes apparently Tecfidera for the MS, but we do not have this information in more detail. She might be on chronic pain medication as well. PHYSICAL EXAMINATION: Showed the patient to be awake, intubated, reasonably alert, following commands. She was able to count fingers bilaterally. She was able to stick her tongue out despite of the tube. She did store mgr on commands and move the lower extremities on command, raised the lower extremities and opposed dorsiflexion resistance. Reflexes were 1+ diminished but present at the ankles and plantar response, probably flexor. LABORATORY DATA: Other laboratory data noted. Today, sodium 143, potassium 3.3, glucose 140, and yesterday it was 111. BUN and creatinine mildly elevated yesterday and today. ASSESSMENT AND PLAN: 1. Altered mentation/hypoxemia/apparent sepsis. 2. History of multiple sclerosis. Thus far, the information we have is not favoring a primary neurological diagnosis for her set back. This may be sepsis related encephalopathy. She is intubated and no other neurologic intervention recommended at this point. Apparently, she is on MS medication, perhaps Tecfidera. She is a patient of Dr. Licona, and we will look into other data for additional information. Thank you for asking us to assist in her care. Nirmal Montgomery MD OFC/TL , 08:23 AM , 08:45 AM
--- NOTE | 2017-05-17 08:56 | HHI.CCPN ---
Subjective Remarks/Hospital Course Patient is an approximately [id number] female who presented to [facility] via EMS for altered mental status. According to ED records, patient had a fall this morning and was unresponsive on scene. On scene, she was found to have a GCS score of 6. The patient has a history of multiple sclerosis. On arrival to the ER, the patient was hypoxic with O2 saturation in the 80s and unresponsive. She was intubated and placed on full mechanical ventilation. In addition, she was started on a Diprivan infusion for sedation. On arrival to the ED, she was hypertensive with a systolic blood pressure 170s-200s and tachycardic with heart rate of 120s -130s. Her initial ABG post-intubation showed acute hypercapnic and hypoxemic respiratory acidosis with a pH of 7.22, CO2 of 73, PaO2 of 75, and bicarbonate of 29. A repeat ABG was done at 12:45, which showed some improvement in her respiratory acidosis with a pH of 7.28, CO2 of 66 on PRVC mode, tidal volume 500, respiratory rate of 18, I time 1.0, PEEP of 10 and 100% FIO2. Her initial chest x-ray in the ER showed diffuse bilateral pulmonary infiltrates consistent with moderate pulmonary edema versus pneumonia. She subsequently underwent CT angiogram of the chest, which showed no evidence of pulmonary embolism; however, it showed severe diffuse alveolar consolidations, tiny bilateral pleural effusions and several thyroid nodules. Also, she had CT brain, which showed no acute infarct, hemorrhage, or midline shift. CT scan of the abdomen and pelvis was obtained as well, which showed colonic diverticulosis, small pleural effusions and extensive alveolar consolidation of the lungs at the bases. In the ER, she was given cefepime, vancomycin, fentanyl, Versed, bronchodilator treatment and placed on nitroglycerine drip. Her laboratory data is significant for a leukocytosis with a WBC of 33.1, BNP of 840 with troponin 0.06. Her lactic acid level measured at 1.3. The patient was transferred to [facility], room 518. When seen, she was on Diprivan for sedation, hypertensive and tachycardic. Her urine drug screen was positive for cannabinoids, benzodiazepines, and opiates. 05/17 Patient remains intubated and sedated with Diprivan and Fentanyl drips. Afebrile. WBC is trending down. Objective Vital Signs Date Time Temp Pulse Resp B/P (MAP) Pulse Ox O2 Delivery O2 Flow Rate FiO2 05/17/17 08:10 98 30 05/17/17 04:00 98.2 98 24 107/58 (74) 05/16/17 14:04 2.00 05/16/17 13:46 Ventilator Intake and Output 05/17/17 05/17/17 05/18/17 08:00 16:00 00:00 Intake Total 351 ml Output Total 1800 ml Balance -1449 ml Result Diagram: 05/17/17 0445 05/17/17 0445 Other Results Laboratory Tests Test 05/16/17 09:30 05/16/17 09:50 05/16/17 10:25 05/16/17 12:35 White Blood Count 33.1 TH/MM3 Red Blood Count 4.87 MIL/MM3 Hemoglobin 13.7 GM/DL Hematocrit 43.0 % Mean Corpuscular Volume 88.2 FL Mean Corpuscular Hemoglobin 28.2 PG Mean Corpuscular Hemoglobin Concent 32.0 % Red Cell Distribution Width 15.5 % Platelet Count 394 TH/MM3 Mean Platelet Volume 7.9 FL Neutrophils (%) (Auto) 78.9 % Lymphocytes (%) (Auto) 15.1 % Monocytes (%) (Auto) 5.5 % Eosinophils (%) (Auto) 0.1 % Basophils (%) (Auto) 0.4 % Neutrophils # (Auto) 26.2 TH/MM3 Lymphocytes # (Auto) 5.0 TH/MM3 Monocytes # (Auto) 1.8 TH/MM3 Eosinophils # (Auto) 0.0 TH/MM3 Basophils # (Auto) 0.1 TH/MM3 CBC Comment AUTO DIFF Differential Total Cells Counted 100 Neutrophils % (Manual) 82 % Band Neutrophils % 1 % Lymphocytes % 10 % Monocytes % 7 % Neutrophils # (Manual) 27.5 TH/MM3 Differential Comment FINAL DIFF MANUAL Prothrombin Time 9.4 SEC Prothromb Time International Ratio 0.9 RATIO Activated Partial Thromboplast Time 19.7 SEC Blood Urea Nitrogen 22 MG/DL Creatinine 1.30 MG/DL Random Glucose 291 MG/DL Total Protein 7.2 GM/DL Albumin 3.5 GM/DL Calcium Level 8.2 MG/DL Alkaline Phosphatase 110 U/L Aspartate Amino Transf (AST/SGOT) 18 U/L Alanine Aminotransferase (ALT/SGPT) 24 U/L Total Bilirubin 0.1 MG/DL Sodium Level 137 MEQ/L Potassium Level 4.1 MEQ/L Chloride Level 96 MEQ/L Carbon Dioxide Level 26.3 MEQ/L Anion Gap 15 MEQ/L Estimat Glomerular Filtration Rate 35 ML/MIN Total Creatine Kinase 59 U/L Troponin I 0.06 NG/ML B-Type Natriuretic Peptide 840 PG/ML Thyroid Stimulating Hormone 3rd Gen 0.891 uIU/ML Salicylates Level 5.7 MG/DL Acetaminophen Level 8.7 MCG/ML Ethyl Alcohol Level LESS THAN 3 MG/DL Urine Opiates Screen POS Urine Barbiturates Screen NEG Urine Amphetamines Screen NEG Urine Benzodiazepines Screen POS Urine Cocaine Screen NEG Urine Cannabinoids Screen POS Blood Gas Puncture Site LT RADIAL Blood Gas Patient Temperature 98.6 Blood Gas HCO3 29 mmol/L Blood Gas Base Excess 1.6 mmol/L Blood Gas Oxygen Saturation 86 % Arterial Blood pH 7.22 Arterial Blood Partial Pressure CO2 73 mmHG Arterial Blood Partial Pressure O2 75 mmHG Arterial Blood Oxygen Content 16.4 Vol % Arterial Blood Carboxyhemoglobin 3.6 % Arterial Blood Methemoglobin 1.7 % Blood Gas Hemoglobin 13.6 G/DL Oxygen Delivery Device VENTILATOR Blood Gas Ventilator Setting PRVC/AC Blood Gas Inspired Oxygen 100 % Lactic Acid Level 1.3 mmol/L Ammonia 43 MCMOL/L Test 05/16/17 12:45 05/16/17 15:00 05/16/17 15:34 05/16/17 16:36 Blood Gas Puncture Site LT RADIAL LT RADIAL Blood Gas Patient Temperature 98.6 98.6 Blood Gas HCO3 30 mmol/L 29 mmol/L Blood Gas Base Excess 3.7 mmol/L 4.4 mmol/L Blood Gas Oxygen Saturation 88 % 92 % Arterial Blood pH 7.28 7.38 Arterial Blood Partial Pressure CO2 66 mmHG 50 mmHg Arterial Blood Partial Pressure O2 72 mmHG 73 mmHg Arterial Blood Oxygen Content 17.6 Vol % 17.1 Vol % Arterial Blood Carboxyhemoglobin 2.3 % 1.0 % Arterial Blood Methemoglobin 1.6 % 1.5 % Blood Gas Hemoglobin 14.2 G/DL 13.3 G/DL Oxygen Delivery Device VENTILATOR VENTILATOR Blood Gas Ventilator Setting PRVC/AC Blood Gas Inspired Oxygen 100 % 60 % Nasal Screen MRSA (PCR) MRSA NOT DETECTED White Blood Count 36.3 TH/MM3 Red Blood Count 4.93 MIL/MM3 Hemoglobin 14.8 GM/DL Hematocrit 43.4 % Mean Corpuscular Volume 87.9 FL Mean Corpuscular Hemoglobin 30.0 PG Mean Corpuscular Hemoglobin Concent 34.1 % Red Cell Distribution Width 15.9 % Platelet Count 341 TH/MM3 Mean Platelet Volume 7.6 FL Neutrophils (%) (Auto) 87.0 % Lymphocytes (%) (Auto) 5.1 % Monocytes (%) (Auto) 7.8 % Eosinophils (%) (Auto) 0.0 % Basophils (%) (Auto) 0.1 % Neutrophils # (Auto) 31.6 TH/MM3 Lymphocytes # (Auto) 1.8 TH/MM3 Monocytes # (Auto) 2.9 TH/MM3 Eosinophils # (Auto) 0.0 TH/MM3 Basophils # (Auto) 0.0 TH/MM3 CBC Comment AUTO DIFF Differential Total Cells Counted 100 Neutrophils % (Manual) 89 % Lymphocytes % 2 % Monocytes % 7 % Basophils % 1 % Neutrophils # (Manual) 32.7 TH/MM3 Myelocytes 1 % Differential Comment FINAL DIFF MANUAL Platelet Estimate NORMAL Platelet Morphology Comment NORMAL Red Cell Morphology Comment NORMAL Blood Urea Nitrogen 22 MG/DL Creatinine 1.22 MG/DL Random Glucose 111 MG/DL Calcium Level 8.7 MG/DL Phosphorus Level 4.6 MG/DL Magnesium Level 2.6 MG/DL Sodium Level 139 MEQ/L Potassium Level 3.3 MEQ/L Chloride Level 97 MEQ/L Carbon Dioxide Level 33.7 MEQ/L Anion Gap 8 MEQ/L Estimat Glomerular Filtration Rate 38 ML/MIN Troponin I 0.73 NG/ML Test 05/16/17 21:00 05/17/17 04:45 Phosphorus Level 3.9 MG/DL 3.1 MG/DL Troponin I 1.08 NG/ML White Blood Count 16.1 TH/MM3 Red Blood Count 4.13 MIL/MM3 Hemoglobin 11.8 GM/DL Hematocrit 36.2 % Mean Corpuscular Volume 87.5 FL Mean Corpuscular Hemoglobin 28.7 PG Mean Corpuscular Hemoglobin Concent 32.8 % Red Cell Distribution Width 15.5 % Platelet Count 194 TH/MM3 Mean Platelet Volume 7.8 FL Neutrophils (%) (Auto) 82.0 % Lymphocytes (%) (Auto) 8.3 % Monocytes (%) (Auto) 9.5 % Eosinophils (%) (Auto) 0.2 % Basophils (%) (Auto) 0.0 % Neutrophils # (Auto) 13.2 TH/MM3 Lymphocytes # (Auto) 1.3 TH/MM3 Monocytes # (Auto) 1.5 TH/MM3 Eosinophils # (Auto) 0.0 TH/MM3 Basophils # (Auto) 0.0 TH/MM3 CBC Comment AUTO DIFF Differential Comment AUTO DIFF CONFIRMED Blood Urea Nitrogen 20 MG/DL Creatinine 1.11 MG/DL Random Glucose 140 MG/DL Total Protein 5.8 GM/DL Albumin 2.6 GM/DL Calcium Level 8.4 MG/DL Magnesium Level 2.1 MG/DL Alkaline Phosphatase 88 U/L Aspartate Amino Transf (AST/SGOT) 12 U/L Alanine Aminotransferase (ALT/SGPT) 17 U/L Total Bilirubin 0.4 MG/DL Sodium Level 143 MEQ/L Potassium Level 3.3 MEQ/L Chloride Level 103 MEQ/L Carbon Dioxide Level 33.8 MEQ/L Anion Gap 6 MEQ/L Estimat Glomerular Filtration Rate 49 ML/MIN Imaging Last Impressions Head CT 05/16/17938 Signed Impressions: Service Date/Time: Tuesday, May 16, 2017 11:49 - CONCLUSION: 1. 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 2. Moderate periventricular and subcortical white matter small vessel ischemic changes bilaterally. 3. No acute infarct, acute hemorrhage, midline shift or extra-axial fluid collections. 4. Small fluid level within the left sphenoid sinus. Nasir Stanton MD Chest X-Ray 05/16/17938 Signed Impressions: Service Date/Time: Tuesday, May 16, 2017 10:07 - CONCLUSION: Diffuse pulmonary infiltrates bilaterally consistent with moderate pulmonary edema versus pneumonia. Nasir Stanton MD CT Angiography 05/16/17938 Signed Impressions: Service Date/Time: Tuesday, May 16, 2017 12:00 - CONCLUSION: 1. No evidence of pulmonary embolism. 2. Severe diffuse alveolar consolidations bilaterally consistent with severe pulmonary edema versus pneumonia. Clinical correlation is recommended. 3. Cardiomegaly. 4. Tiny bilateral pleural effusions. 5. Coronary artery calcifications. 6. Several thyroid nodules bilaterally. Nasir Stanton MD Abdomen/Pelvis CT 05/16/17 0000 Signed Impressions: Service Date/Time: Tuesday, May 16, 2017 12:00 - CONCLUSION: 1. Extensive alveolar consolidations of the lungs consistent with severe pulmonary edema versus pneumonia. 2. Small pleural effusions bilaterally. 3. Cardiomegaly. 4. Uncomplicated colonic diverticulosis. 5. Degenerative changes and scoliosis of the thoracolumbar spine. Nasir Stanton MD Objective Remarks GENERAL: Patient is 62 yo intubated and sedated SKIN: Warm and dry. HEAD: Normocephalic. EYES: No scleral icterus. No injection or drainage. NECK: Supple, trachea midline. No JVD or lymphadenopathy. CARDIOVASCULAR: Regular rate and rhythm without murmurs, gallops, or rubs. RESPIRATORY: Breath sounds equal bilaterally. No accessory muscle use. GASTROINTESTINAL: Abdomen soft, non-tender, nondistended. MUSCULOSKELETAL: No cyanosis, or edema. Neuro: sedated A/P Assessment and Plan 1. VDRF 2. Diffuse alveolar consolidation. ddx pulmonary edema versus infectious process. 3. Elevated trop 4. Leukocytosis. 5. Hyperglycemia. 6. Mild acute kidney injury. 7. Hypertenion 8. Polysubstance abuse with urine drug screen positive for cannabinoids, opiates and benzodiazepines. 9. History of multiple sclerosis. Plan Neuro: On Fentanyl and Diprivan infusion for sedation Daily sedation vacation. CT brain in the ED negative for acute intracranial process. UDS positive for opiates, benzodiazepines and cannabinoids. Neuro is following for hx of MS Pulm: Continue with vent support and maintain sats > 92%. Bronchodilators, ICU vent bundle. On PRVC RR 24, TV 500, IT:1.0, PEEP:10 and FIO2 40%, decrease PEEP:5 as tomasz SBT daily as tomasz CXR this morning b/l airspace disease somewhat better. CV: Monitor HR and BP keep MAP>65mmHg On Cardizem 60 mg q. 6. Monitor Lactic acid level measured 1.3. Monitor troponins. Give ASA 325mg x1, for 2D echo Cards eval, mild elevated trop likely stress mediated 2nd hypoxemia, pneumonia : Monitor renal function, I's and O's and electrolyte replacement as needed. On Lasix 40mg IV Q12 GI: On Pepcid 20 mg IV q. 12 hours for GI prophylaxis. Start tube feeds- Glucerna 1.5 with goal rate 50ml/hr ID: Continue abx(vancomycin, Zosyn and azithromycin). Monitor for signs of infections( fever and WBC). WBC is trending down Nasal washing in the ED negative for influenza. strep pneumonia and legionella urinary antigen pending. Follow up on blood and sputum cx, ID consulted Endo: On medium scale sliding scale insulin for glycemic control. TSH level measured at 0.89. Heme: Monitor CBC. GI prophylaxis with Pepcid and DVT prophylaxis with SCDs and heparin subq. Lines: Right IJ central line was placed by ED physician. Level 3 Carole Boston MD May 17, 2017 08:56
[2017-05-17] MEDS: PROPOFOL 1000 MG/100 ML INJ 100 ML IV PRN ×3 (09:20→15:24)
[2017-05-17] MEDS: POTASSIUM CHLOR 40 MEQ PREMIX 100 ML IV PRN ×2 (09:23→22:20)
[2017-05-17] MEDS: FAMOTIDINE 20 MG/2 ML VIAL IV PUSH SCH (09:23)
[2017-05-17] MEDS: SODIUM CHLORIDE 0.9% FLUSH 10 ML FLUSH IV FLUSH PRN (09:24)
[2017-05-17] MEDS: FUROSEMIDE 40 MG/4 ML VIAL IV PUSH SCH ×2 (09:25→18:15)
[2017-05-17] MEDS: LACTULOSE SYRUP 20 GM/30 ML CUP PO SCH ×3 (09:25→18:00)
[2017-05-17] MEDS: CHLORHEXIDINE 0.12% (ORAL KIT) 15 ML CUP MT SCH ×2 (09:26→20:00)
[2017-05-17] MEDS: DOCUSATE SODIUM 50 MG/SENNA 8.6 MG TAB PO SCH ×2 (09:26→20:49)
[2017-05-17] MEDS ORDERED: ASPIRIN 325 MG TAB PO ONE (11:00)
--- NOTE | 2017-05-17 11:40 | MB ---
cc: Kwame Regan MD DATE: 05/17/2017 HISTORY OF PRESENT ILLNESS: This is a 62-year-old woman who is admitted to the hospital with initially altered mental status. She has a history of multiple sclerosis and arrived in the emergency department unresponsive after a fall. She was found to have significant hypoxemia with O2 saturation in the 80s and has been intubated. A chest x-ray at that time has revealed rather diffuse infiltrates, especially in the left lower and middle parts of the lung with ABG showing respiratory acidosis with pCO2 of 66 with pH of 7.28. She has undergone CT scan and a CT angiogram showing no evidence for pulmonary emboli. BNP was drawn, which is 840. We have been asked to see her and that her initial troponin was 0.06 and has risen to 1.04 and then falling to 0.66. Electrocardiogram was done revealing sinus tachycardia with no ST segment abnormalities and only minor T-wave changes. The patient is awake on ventilator. She appears to be in mild distress. She does have rather diffuse pain and has been treated in the past with the fentanyl and is on a fentanyl drip. She also has been on Diprivan, but this has been weaned back because of initial problems with hypotension. Her blood pressure is currently 140/90 with a pulse rate of 110. As noted above, she is intubated and history is somewhat difficult to obtain, but she has had no history of heart problems in the past. She denies any problems with chest pain, but does feel somewhat short of breath on the ventilator, although her blood gases are much improved. Of note, was her urine drug screen has been positive for cannabinoids, benzodiazepine, and opiates. SOCIAL HISTORY: Significant for smoking 1-1/2 packs of cigarettes per day. ALLERGIES: NONE. PHYSICAL EXAMINATION: GENERAL: Awake, alert and responsive. VITAL SIGNS: Blood pressure is 140/90, pulse 120. HEENT: Unremarkable. CARDIOVASCULAR: Reveals a regular rate and rhythm with no murmur or gallop. EXTREMITIES: Reveal no edema. LUNGS: Reveal diffuse coarse breath sounds and rhonchi throughout. No wheezes are present. ASSESSMENT AND PLAN: The patient has had evidence for ARDS, which may be secondary to drug use or possibly infection. At this point in time, she does not appear to have cardiogenic pulmonary edema. Her BNP is in intermediate range. Elevated troponins are likely demand mediated and as mentioned she has no chest pain or electrocardiographic changes. We will order an echocardiogram to further help with diagnosis. We do note that on admission, her white blood cell count was 33,000, which is now stabilized to 16,000 consistent with either ARDS or possibly infection. I will be happy to follow along with you. Time being and continue aggressive supportive care. MD DAMIR Urias/FREDI , 11:16 AM , 11:39 AM
[2017-05-17] MEDS ORDERED: DILTIAZEM HCL 50 MG/10 ML VIAL IV PUSH ONE (12:15)
[2017-05-17] MEDS ORDERED: DILTIAZEM 125 MG/NS 100 ML IV PRN ×2 (12:30)
[2017-05-17] MEDS: AZITHROMYCIN INJ 500 MG in SODIUM CHLOR 0.9% 250 ML INJ 250 ML IV SCH (15:03)
[2017-05-17] MEDS: VANCOMYCIN INJ 1,500 MG in SODIUM CHLORID 0.9% 500 ML INJ 500 ML IV SCH (15:10)
--- NOTE | 2017-05-17 16:04 | PD.ID.CON ---
History of Present Illness Service ID Consult Requested By Dr King Reason for Consult PNA, leukocytosis Primary Care Physician Kwame Hedrick MD Diagnoses: History of Present Illness 62 yo female with h/o MS started on pulse dose of IV sterroids presented with 1-2 weeks worsening cough, SOB On presentation hypoxic, hypercapnic leukocytosis of 33 K but afebrile int'd , placed on vent still on PEEP of 10 sputum non purulent BNP high 840 blood clx neg so far @ 1 day Leg/flu/ pneumocioccus neg Review of Systems Except as stated in HPI: all other systems reviewed are Neg Past Family Social History Allergies: Coded Allergies: No Allergy Information Available (Unverified , 05/16/17) Past Medical History MS Past Surgical History not reported Active Ordered Medications Medications where reviewed in EMR Antibiotics Include: junaid goel Family History reviewed/ NC to current ID issue Social History tobacco + 1ppd No ETOH + opiate/benzo Physical Exam Vital Signs Vital Signs Date Time Temp Pulse Resp B/P (MAP) Pulse Ox O2 Delivery O2 Flow Rate FiO2 05/17/17 14:00 138 05/17/17 12:00 98.3 165 14 121/51 (74) 98 05/17/17 12:00 165 05/17/17 10:00 105 05/17/17 08:10 98 30 05/17/17 08:00 96 05/17/17 08:00 98.4 96 24 101/53 (69) 99 05/17/17 04:21 96 40 05/17/17 04:00 98.2 98 24 107/58 (74) 97 05/17/17 00:39 99 50 05/17/17 00:00 98.3 104 24 120/57 (78) 100 05/16/17 20:56 97 50 05/16/17 20:00 98.9 101 24 122/60 (80) 99 05/16/17 19:30 110 138/69 05/16/17 18:00 105 05/16/17 16:00 98.7 116 12 114/65 (81) 96 05/16/17 16:00 121 05/16/17 15:44 96 50 Physical Exam CONSTITUTIONAL/GENERAL: This is an adequately nourished patient, in no apparent distress. Intubated, on vent TUBES/LINES/DRAINS: SKIN: No jaundice, rashes, or lesions. Skin temperature appropriate. Not diaphoretic. HEAD: Atraumatic. Normocephalic. EYES: Pupils equal and round and reactive. Extraocular motions intact. No scleral icterus. No injection or drainage. Fundi not examined. ENT: Hearing grossly normal. Nose without bleeding or purulent drainage. Throat without visible erythema, exudates, masses, or lesions. NECK: Trachea midline. Supple, nontender. CARDIOVASCULAR: Regular rate and rhythm without murmurs, gallops, or rubs. No JVD. Peripheral pulses symmetric. RESPIRATORY/CHEST: Symmetric, unlabored respirations. b/l rhonchi to auscultation. Breath sounds equal bilaterally. No wheezes, rales, or rhonchi. GASTROINTESTINAL: Abdomen soft, non-tender, nondistended. No hepato-splenomegaly , or palpable masses. No guarding. Bowel sounds present. GENITOURINARY: Without palpable bladder distension. Longoria catheter in place. MUSCULOSKELETAL: Extremities without clubbing, cyanosis, or edema. No joint tenderness or effusion noted. No calf tenderness. No mottling or clubbing. LYMPHATICS: No palpable cervical or supraclavicular adenopathy. NEUROLOGICAL: Awake and alert. Motor and sensory grossly within normal limits. Follows commands. Moves all extremities. PSYCHIATRIC: No obvious anxiety/depression. no apparent hallucinations or other psychotic thought process. Laboratory Laboratory Tests Test 05/16/17 15:34 05/16/17 16:36 05/16/17 21:00 05/17/17 04:45 White Blood Count 36.3 16.1 Red Blood Count 4.93 4.13 Hemoglobin 14.8 11.8 Hematocrit 43.4 36.2 Mean Corpuscular Volume 87.9 87.5 Mean Corpuscular Hemoglobin 30.0 28.7 Mean Corpuscular Hemoglobin Concent 34.1 32.8 Red Cell Distribution Width 15.9 15.5 Platelet Count 341 194 Mean Platelet Volume 7.6 7.8 Neutrophils (%) (Auto) 87.0 82.0 Lymphocytes (%) (Auto) 5.1 8.3 Monocytes (%) (Auto) 7.8 9.5 Eosinophils (%) (Auto) 0.0 0.2 Basophils (%) (Auto) 0.1 0.0 Neutrophils # (Auto) 31.6 13.2 Lymphocytes # (Auto) 1.8 1.3 Monocytes # (Auto) 2.9 1.5 Eosinophils # (Auto) 0.0 0.0 Basophils # (Auto) 0.0 0.0 CBC Comment AUTO DIFF AUTO DIFF Differential Total Cells Counted 100 Neutrophils % (Manual) 89 Lymphocytes % 2 Monocytes % 7 Basophils % 1 Neutrophils # (Manual) 32.7 Myelocytes 1 Differential Comment FINAL DIFF MANUAL AUTO DIFF CONFIRMED Platelet Estimate NORMAL Platelet Morphology Comment NORMAL Red Cell Morphology Comment NORMAL Blood Urea Nitrogen 22 20 Creatinine 1.22 1.11 Random Glucose 111 140 Calcium Level 8.7 8.4 Phosphorus Level 4.6 3.9 3.1 Magnesium Level 2.6 2.1 Sodium Level 139 143 Potassium Level 3.3 3.3 Chloride Level 97 103 Carbon Dioxide Level 33.7 33.8 Anion Gap 8 6 Estimat Glomerular Filtration Rate 38 49 Troponin I 0.73 1.08 Blood Gas Puncture Site LT RADIAL Blood Gas Patient Temperature 98.6 Blood Gas HCO3 29 Blood Gas Base Excess 4.4 Blood Gas Oxygen Saturation 92 Arterial Blood pH 7.38 Arterial Blood Partial Pressure CO2 50 Arterial Blood Partial Pressure O2 73 Arterial Blood Oxygen Content 17.1 Arterial Blood Carboxyhemoglobin 1.0 Arterial Blood Methemoglobin 1.5 Blood Gas Hemoglobin 13.3 Oxygen Delivery Device VENTILATOR Blood Gas Ventilator Setting Blood Gas Inspired Oxygen 60 Total Protein 5.8 Albumin 2.6 Alkaline Phosphatase 88 Aspartate Amino Transf (AST/SGOT) 12 Alanine Aminotransferase (ALT/SGPT) 17 Total Bilirubin 0.4 Test 05/17/17 09:39 Troponin I 0.42 Date/Time Source Procedure Growth Status 05/16/17 12:55 Blood Peripheral Aerobic Blood Culture - Preliminary NO GROWTH IN 1 DAY Resulted 05/16/17 12:55 Blood Peripheral Anaerobic Blood Culture - Preliminary NO GROWTH IN 1 DAY Resulted 05/16/17 12:35 Sputum Expectorated Sputum Gram Stain - Final Resulted 05/16/17 12:35 Sputum Expectorated Sputum Sputum Culture Pending Resulted 05/16/17 09:50 Urine Catheterized Urine Legionella Antigen - Final PRESUMPTIVE NEGATIVE FOR LEGIONELLA P... Complete 05/16/17 09:50 Urine Catheterized Urine Streptococcus pneumoniae Antigen (M - Final PRESUMPTIVE NEGATIVE FOR STREPTOCOCCU... Complete Result Diagram: 05/17/175 05/17/17444 Imaging Last Impressions Head CT 3/25/18 0939 Signed Impressions: Service Date/Time: Tuesday, May 16, 2017 11:49 - CONCLUSION: 1. 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 2. Moderate periventricular and subcortical white matter small vessel ischemic changes bilaterally. 3. No acute infarct, acute hemorrhage, midline shift or extra-axial fluid collections. 4. Small fluid level within the left sphenoid sinus. Nasir Stanton MD Chest X-Ray 05/16/17938 Signed Impressions: Service Date/Time: Tuesday, May 16, 2017 10:07 - CONCLUSION: Diffuse pulmonary infiltrates bilaterally consistent with moderate pulmonary edema versus pneumonia. Nasir Stanton MD CT Angiography 05/16/17938 Signed Impressions: Service Date/Time: Tuesday, May 16, 2017 12:00 - CONCLUSION: 1. No evidence of pulmonary embolism. 2. Severe diffuse alveolar consolidations bilaterally consistent with severe pulmonary edema versus pneumonia. Clinical correlation is recommended. 3. Cardiomegaly. 4. Tiny bilateral pleural effusions. 5. Coronary artery calcifications. 6. Several thyroid nodules bilaterally. Nasir Stanton MD Abdomen/Pelvis CT 05/16/17 Signed Impressions: Service Date/Time: Tuesday, May 16, 2017 12:00 - CONCLUSION: 1. Extensive alveolar consolidations of the lungs consistent with severe pulmonary edema versus pneumonia. 2. Small pleural effusions bilaterally. 3. Cardiomegaly. 4. Uncomplicated colonic diverticulosis. 5. Degenerative changes and scoliosis of the thoracolumbar spine. Nasir Stanton MD Assessment and Plan Assessment and Plan PNA Acute VDRF, mixed hypoxic/hypercapnic MS on pulse sterroids CHF ? - BNP is really high REC's: cont current abx add AFB/fungal sputum clx Discussed Condition With Pilar Sprague MD May 17, 2017 16:04
[2017-05-17] MEDS: MORPHINE SULFATE 4 MG/ML INJ IV PUSH PRN ×2 (18:16→23:34)
[2017-05-17] MEDS: FAMOTIDINE 20 MG TAB PO SCH (20:48)
[2017-05-17] MEDS ORDERED: MORPHINE SULFATE 30 MG TAB PO PRN (23:15)
[2017-05-17] MEDS: PROPRANOLOL HCL 20 MG TAB PO SCH (23:32)
[2017-05-17] MEDS: ALPRAZolam 0.5 MG TAB PO PRN (23:32)
[2017-05-17] MEDS: oxyCODONE/ACETAMINOPHEN 5 MG/325 MG TAB PO PRN (23:33)
[2017-05-18] VITALS (10 sets, daily range): BP systolic 139–200; BP diastolic 62–98; PULSE 77–104; RESP 16–36; TEMP 97.6–98.9; O2SAT 93–98
[2017-05-18] MEDS: POTASSIUM CHLOR 40 MEQ PREMIX 100 ML IV PRN (01:22)
[2017-05-18] MEDS: MORPHINE SULFATE 15 MG TAB PO PRN ×4 (01:26→23:09)
[2017-05-18] MEDS: RESP: ALBUTEROL 2.5 MG/IPRATROPIUM 0.5 MG NEB (SCH) INH ×4 (02:33→22:05)
[2017-05-18] MEDS: CHLORHEXIDINE GLUCONATE 2 % 1 PACK (2 CLOTHS) TOP SCH (04:00)
[2017-05-18] MEDS: INSULIN NovoLIN REGULAR SUPPLEMENTAL SCALE SQ SCH ×6 (04:00→23:05)
[2017-05-18] MEDS: DILTIAZEM HCL 60 MG TAB PO SCH ×4 (04:01→23:07)
[2017-05-18] MEDS: HEPARIN SODIUM - SQ 10,000 UNITS/ML VIAL SQ SCH ×2 (04:02→16:20)
--- NOTE | 2017-05-18 04:31 | RADRPT ---
EXAM DATE/TIME: 05/18/2017 02:52 [facility] COMPARISON: CHEST SINGLE AP, May 17, 2017, 3:21. INDICATIONS : Short of breath. MEDICAL HISTORY : None. SURGICAL HISTORY : None. ENCOUNTER: Subsequent ACUITY: 3 days PAIN SCORE: 0/10 LOCATION: Bilateral chest FINDINGS: A single view of the chest demonstrates slight improvement in bilateral airspace disease. Right jugul ar central line with tip in the SVC. Endotracheal tube removed. Osseous structures are intact. CONCLUSION: Slight improvement in bilateral airspace disease. Duane Feldman MD on May 18, 2017 at 4:28 Board Certified Radiologist. This report was verified electronically.
[2017-05-18 04:59] LABS: AUTOMATED NEUTROPHIL # 10.6 TH/MM3 (1.8-7.7); BASOPHIL % 0.1 % (0.0-2.0); EOSINOPHIL % 0.2 % (0.0-4.0); HEMATOCRIT 33.1 % (35.0-46.0); LYMPH % 8.9 % (9.0-44.0); LYMPHOCYTE # 1.1 TH/MM3 (1.0-4.8); MEAN CORPUSCULAR HEMOGLOBIN 28.8 PG (27.0-34.0); MEAN CORPUSCULAR HGB CONC 33.1 % (32.0-36.0); MEAN PLATELET VOLUME 8.1 FL (7.0-11.0); MONO % 6.7 % (0.0-8.0); MONOCYTE # 0.8 TH/MM3 (0-0.9); NEUT % 84.1 % (16.0-70.0); PLATELET COUNT 180 TH/MM3 (150-450); RED BLOOD COUNT 3.81 MIL/MM3 (4.00-5.30); WHITE BLOOD COUNT 12.6 TH/MM3 (4.0-11.0)
[2017-05-18] MEDS: PIPERACIL-TAZO 4.5 GM PREMIX 100 ML IV SCH ×4 (05:04→23:07)
[2017-05-18 05:39] LABS: BICARBONATE 30.2 MEQ/L (21.0-32.0); CALCIUM 8.8 MG/DL (8.5-10.1); CREATININE 0.92 MG/DL (0.50-1.00); MAGNESIUM 1.8 MG/DL (1.5-2.5); PHOSPHORUS 2.6 MG/DL (2.5-4.9)
[2017-05-18] MEDS: MORPHINE SULFATE 4 MG/ML INJ IV PUSH PRN ×4 (07:10→19:43)
[2017-05-18] MEDS: ALPRAZolam 0.5 MG TAB PO PRN ×2 (07:10→16:19)
[2017-05-18] MEDS: LACTULOSE SYRUP 20 GM/30 ML CUP PO SCH ×3 (07:44→11:42)
[2017-05-18] MEDS: CHLORHEXIDINE 0.12% (ORAL KIT) 15 ML CUP MT SCH ×2 (07:44→20:00)
[2017-05-18] MEDS: DOCUSATE SODIUM 50 MG/SENNA 8.6 MG TAB PO SCH ×2 (07:44→19:42)
--- NOTE | 2017-05-18 08:15 | HHI.CCPN ---
Subjective Remarks/Hospital Course Patient is an approximately [id number] female who presented to [facility] ED via EMS for altered mental status. According to ED records, patient had a fall this morning and was unresponsive on scene. On scene, she was found to have a GCS score of 6. The patient has a history of multiple sclerosis. On arrival to the ER, the patient was hypoxic with O2 saturation in the 80s and unresponsive. She was intubated and placed on full mechanical ventilation. In addition, she was started on a Diprivan infusion for sedation. On arrival to the ED, she was hypertensive with a systolic blood pressure 170s-200s and tachycardic with heart rate of 120s -130s. Her initial ABG post-intubation showed acute hypercapnic and hypoxemic respiratory acidosis with a pH of 7.22, CO2 of 73, PaO2 of 75, and bicarbonate of 29. A repeat ABG was done at 12:45, which showed some improvement in her respiratory acidosis with a pH of 7.28, CO2 of 66 on PRVC mode, tidal volume 500, respiratory rate of 18, I time 1.0, PEEP of 10 and 100% FIO2. Her initial chest x-ray in the ER showed diffuse bilateral pulmonary infiltrates consistent with moderate pulmonary edema versus pneumonia. She subsequently underwent CT angiogram of the chest, which showed no evidence of pulmonary embolism; however, it showed severe diffuse alveolar consolidations, tiny bilateral pleural effusions and several thyroid nodules. Also, she had CT brain, which showed no acute infarct, hemorrhage, or midline shift. CT scan of the abdomen and pelvis was obtained as well, which showed colonic diverticulosis, small pleural effusions and extensive alveolar consolidation of the lungs at the bases. In the ER, she was given cefepime, vancomycin, fentanyl, Versed, bronchodilator treatment and placed on nitroglycerine drip. Her laboratory data is significant for a leukocytosis with a WBC of 33.1, BNP of 840 with troponin 0.06. Her lactic acid level measured at 1.3. The patient was transferred to [facility], room 518. When seen, she was on Diprivan for sedation, hypertensive and tachycardic. Her urine drug screen was positive for cannabinoids, benzodiazepines, and opiates. 05/17 Patient remains intubated and sedated with Diprivan and Fentanyl drips. Afebrile. WBC is trending down. 05/18 Patient was extubated yesterday on 3L oxygen. Awake and alert. Objective Vital Signs Date Time Temp Pulse Resp B/P (MAP) Pulse Ox O2 Delivery O2 Flow Rate FiO2 05/18/17 07:43 100 Nasal Cannula 3.00 05/18/17 04:00 98.6 96 36 139/62 (87) 05/17/17 15:54 30 Intake and Output 05/18/17 05/18/17 05/19/17 08:00 16:00 00:00 Intake Total 377 ml Output Total 2800 ml Balance -2423 ml Result Diagram: 05/18/17 0400 05/18/17 0400 Other Results Laboratory Tests Test 05/17/17 09:39 05/17/17 16:25 05/17/17 19:00 05/17/17 20:15 Troponin I 0.42 NG/ML 0.17 NG/ML Blood Gas Puncture Site LT RADIAL Blood Gas Patient Temperature 98.6 Blood Gas HCO3 31 mmol/L Blood Gas Base Excess 5.7 mmol/L Blood Gas Oxygen Saturation 96 % Arterial Blood pH 7.38 Arterial Blood Partial Pressure CO2 53 mmHg Arterial Blood Partial Pressure O2 161 mmHg Arterial Blood Oxygen Content 15.9 Vol % Arterial Blood Carboxyhemoglobin 1.1 % Arterial Blood Methemoglobin 1.6 % Blood Gas Hemoglobin 11.6 G/DL Oxygen Delivery Device VENTILATOR Blood Gas Ventilator Setting CPAP+10/PS+10 Blood Gas Inspired Oxygen 30 % Potassium Level 2.8 MEQ/L Test 05/18/17 04:00 White Blood Count 12.6 TH/MM3 Red Blood Count 3.81 MIL/MM3 Hemoglobin 11.0 GM/DL Hematocrit 33.1 % Mean Corpuscular Volume 87.0 FL Mean Corpuscular Hemoglobin 28.8 PG Mean Corpuscular Hemoglobin Concent 33.1 % Red Cell Distribution Width 16.0 % Platelet Count 180 TH/MM3 Mean Platelet Volume 8.1 FL Neutrophils (%) (Auto) 84.1 % Lymphocytes (%) (Auto) 8.9 % Monocytes (%) (Auto) 6.7 % Eosinophils (%) (Auto) 0.2 % Basophils (%) (Auto) 0.1 % Neutrophils # (Auto) 10.6 TH/MM3 Lymphocytes # (Auto) 1.1 TH/MM3 Monocytes # (Auto) 0.8 TH/MM3 Eosinophils # (Auto) 0.0 TH/MM3 Basophils # (Auto) 0.0 TH/MM3 CBC Comment DIFF FINAL Differential Comment Blood Urea Nitrogen 16 MG/DL Creatinine 0.92 MG/DL Random Glucose 110 MG/DL Calcium Level 8.8 MG/DL Phosphorus Level 2.6 MG/DL Magnesium Level 1.8 MG/DL Sodium Level 142 MEQ/L Potassium Level 3.8 MEQ/L Chloride Level 103 MEQ/L Carbon Dioxide Level 30.2 MEQ/L Anion Gap 9 MEQ/L Estimat Glomerular Filtration Rate 61 ML/MIN Imaging Last Impressions Chest X-Ray 05/17/170 Signed Impressions: Service Date/Time: Wednesday, May 17, 2017 03:21 - CONCLUSION: Bilateral airspace disease greater left lung, slightly improved. Duane Feldman MD Head CT 05/16/17938 Signed Impressions: Service Date/Time: Tuesday, May 16, 2017 11:49 - CONCLUSION: 1. 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 2. Moderate periventricular and subcortical white matter small vessel ischemic changes bilaterally. 3. No acute infarct, acute hemorrhage, midline shift or extra-axial fluid collections. 4. Small fluid level within the left sphenoid sinus. Nasir Stanton MD CT Angiography 05/16/17938 Signed Impressions: Service Date/Time: Tuesday, May 16, 2017 12:00 - CONCLUSION: 1. No evidence of pulmonary embolism. 2. Severe diffuse alveolar consolidations bilaterally consistent with severe pulmonary edema versus pneumonia. Clinical correlation is recommended. 3. Cardiomegaly. 4. Tiny bilateral pleural effusions. 5. Coronary artery calcifications. 6. Several thyroid nodules bilaterally. Nasir Stanton MD Abdomen/Pelvis CT 05/16/17 0000 Signed Impressions: Service Date/Time: Tuesday, May 16, 2017 12:00 - CONCLUSION: 1. Extensive alveolar consolidations of the lungs consistent with severe pulmonary edema versus pneumonia. 2. Small pleural effusions bilaterally. 3. Cardiomegaly. 4. Uncomplicated colonic diverticulosis. 5. Degenerative changes and scoliosis of the thoracolumbar spine. Nasir Stanton MD Objective Remarks GENERAL: Patient is 62 yo lying in bed in NAD SKIN: Warm and dry. HEAD: Normocephalic. EYES: No scleral icterus. No injection or drainage. NECK: Supple, trachea midline. No JVD or lymphadenopathy. CARDIOVASCULAR: Regular rate and rhythm without murmurs, gallops, or rubs. RESPIRATORY: Breath sounds equal bilaterally. No accessory muscle use. GASTROINTESTINAL: Abdomen soft, non-tender, nondistended. MUSCULOSKELETAL: No cyanosis, or edema. Neuro: Awake and alert A/P Assessment and Plan 1. VDRF -extubated 05/17 2. B/l air space disease- improving 3. Elevated trop 4. Leukocytosis. 5. Hyperglycemia. 6. Mild acute kidney injury. 7. Hypertenion 8. Polysubstance abuse with urine drug screen positive for cannabinoids, opiates and benzodiazepines. 9. History of multiple sclerosis. Plan Neuro: Awake and alert CT brain in the ED negative for acute intracranial process. UDS positive for opiates, benzodiazepines and cannabinoids. Neuro is following for hx of MS On Lyrica 100mg Q12 Pulm: Continue with oxygen and maintain sats > 92%. Bronchodilators, IS NIPPV PRN for resp distress CV: Monitor HR and BP keep MAP>65mmHg On Cardizem 60 mg q. 6. Monitor Lactic acid level measured 1.3. for 2D echo, cards is following- Dr. Regan mild elevated trop likely stress mediated 2nd hypoxemia, pneumonia : Monitor renal function, I's and O's and electrolyte replacement as needed. GI: On Pepcid 20 mg PO q. 12 hours for GI prophylaxis. Speech eval, ID: Continue abx(vancomycin, Zosyn and azithromycin). Monitor for signs of infections( fever and WBC). WBC is trending down Nasal washing in the ED negative for influenza. strep pneumonia and legionella urinary antigen negative BC, sputum cx 05/16: NGTD Endo: On medium scale sliding scale insulin for glycemic control. TSH level measured at 0.89. Heme: Monitor CBC. GI prophylaxis with Pepcid and DVT prophylaxis with SCDs and heparin subq. Lines: Peripheral IV's, d/c central line Level 2 Carole Boston MD May 18, 2017 08:15
--- NOTE | 2017-05-18 08:21 | PD.CARD.PN ---
Subjective Subjective Remarks Extubated. Awake but disoriented. Denies chest pain or palpitations Objective Medications Current Medications Medications (Trade) Dose Ordered Sig/Maria Alejandra Route Start Time Stop Time Status Last Admin (NS Flush) 2 ml UNSCH PRN IVF 05/16/17 09:45 (NS Flush) 2 ml UNSCH PRN IV FLUSH 05/16/17 09:45 05/17/17 09:24 (Duoneb Neb) 1 ampule Q6HR NEB INH 05/16/17 16:00 05/18/17 02:33 (Heparin Inj) 5,000 units Q12H SQ 05/16/17 16:00 05/18/17 04:02 Miscellaneous Information 1 Q361D XX 05/16/17 15:00 (Chlorhexidine 2% Cloth) 3 pack Taper DAILY@04 TOP 05/17/17 04:00 05/13/18 03:59 05/18/17 04:00 (Chlorhexidine 2% Cloth) 3 pack UNSCH PRN TOP 05/16/17 15:00 (Ana-Colace) 1 tab BID PO 05/16/17 21:00 05/17/17 09:26 (Milk Of Magnesia Liq) 30 ml Q12H PRN PO 05/16/17 15:00 (Senokot) 17.2 mg Q12H PRN PO 05/16/17 15:00 (Dulcolax Supp) 10 mg DAILY PRN RECTAL 05/16/17 16:00 (Lactulose Liq) 30 ml DAILY PRN PO 05/16/17 15:00 (Peridex 0.12% Liq) 15 ml BID@08,20 MT 05/16/17 20:00 05/17/17 09:26 Pharmacy Profile Note 0 ml @ 0 mls/hr UNSCH OTHER 05/16/17 15:00 Piperacillin Sod/ Tazobactam Sod 100 ml @ 200 mls/hr Q6H IV 05/16/17 16:00 05/18/17 05:04 Azithromycin 500 mg/Sodium Chloride 250 ml @ 250 mls/hr Q24H IV 05/16/17 16:00 05/17/17 15:03 (D50w (Vial) Inj) 50 ml UNSCH PRN IV PUSH 05/16/17 15:00 (Glucagon Inj) 1 mg UNSCH PRN OTHER 05/16/17 15:00 (NovoLIN R SUPPLEMENTAL SCALE) 1 Q4H SQ 05/16/17 16:00 (Lactulose Liq) 30 ml TID PO 05/16/17 18:00 05/17/17 10:53 (Cardizem) 60 mg Q6HR PO 05/16/17 16:00 05/18/17 04:01 Vancomycin HCl 1500 mg/Sodium Chloride 515 ml @ 250 mls/hr Q24H IV 05/16/17 17:00 05/17/17 15:10 Miscellaneous Information SPECIFIC LAB TO BE DRAWN:[facility]AN[facility] TROUGH DATE TO BE DR... ONCE ONCE .XX 05/19/17 16:45 05/19/17 16:46 Potassium Chloride 100 ml @ 50 mls/hr Q2H PRN IV 05/16/17 17:30 05/18/17 01:22 Potassium Chloride 100 ml @ 50 mls/hr Q2H PRN IV 05/16/17 17:30 (K-Lyte Cl Eff) 50 meq UNSCH PRN PO 05/16/17 17:30 Potassium Chloride 100 ml @ 25 mls/hr UNSCH PRN IV 05/16/17 17:30 05/16/17 20:51 Potassium Chloride 100 ml @ 50 mls/hr Q2H PRN IV 05/16/17 17:30 Magnesium Sulfate 4 gm/Sodium Chloride 100 ml @ 50 mls/hr UNSCH PRN IV 05/16/17 17:30 (Mag-Ox) 800 mg UNSCH PRN PO 05/16/17 17:30 Magnesium Sulfate 2 gm/Sodium Chloride 100 ml @ 50 mls/hr UNSCH PRN IV 05/16/17 17:30 (K-Phos) 2,000 mg Q4H PRN PO 05/16/17 17:30 Sodium Phosphate 30 mmol/Sodium Chloride 250 ml @ 42 mls/hr UNSCH PRN IV 05/16/17 17:30 (K-Phos) 2,000 mg UNSCH PRN PO/TUBE 05/16/17 17:30 Potassium Phosphate 30 mmol/ Sodium Chloride 260 ml @ 42 mls/hr UNSCH PRN IV 05/16/17 17:30 (Pepcid) 20 mg BID PO 05/17/17 21:00 (Morphine Inj) 1 mg Q4H PRN IV PUSH 05/17/17 17:45 05/17/17 23:34 (Inderal) 20 mg Q12HR PO 05/17/17 23:15 05/17/17 23:32 (Lyrica) 100 mg Q12HR PO 05/18/17 09:00 (Xanax) 0.5 mg Q8H PRN PO 05/17/17 23:15 05/17/17 23:32 (Percocet 5-325 Mg) 1 tab Q6H PRN PO 05/17/17 23:15 05/17/17 23:33 (Msir) 15 mg Q4H PRN PO 05/17/17 23:30 05/18/17 01:26 Vital Signs / I&O Vital Signs Date Time Temp Pulse Resp B/P (MAP) Pulse Ox O2 Delivery O2 Flow Rate FiO2 05/18/17 07:43 100 Nasal Cannula 3.00 05/18/17 07:00 100 Nasal Cannula 4.00 05/18/17 04:00 98.6 96 36 139/62 (87) 93 05/18/17 00:00 98.3 104 16 152/81 (104) 96 05/17/17 20:49 144 145/70 05/17/17 20:44 97 Nasal Cannula 4.00 05/17/17 20:00 98.0 121 24 180/80 (113) 95 05/17/17 19:00 100 Nasal Cannula 4.00 05/17/17 18:06 100 Nasal Cannula 4.00 05/17/17 18:00 111 05/17/17 17:12 95 Nasal Cannula 4 05/17/17 16:00 98.4 133 14 114/58 (76) 96 05/17/17 16:00 133 05/17/17 15:54 97 30 05/17/17 14:00 138 05/17/17 12:00 98.3 165 14 121/51 (74) 98 05/17/17 12:00 165 05/17/17 10:00 105 I/O 05/17/17 05/17/17 05/17/17 05/18/17 05/18/17 05/18/17 07:00 15:00 23:00 07:00 15:00 23:00 Intake Total 601 ml 39 ml 1391 ml 277 ml 100 ml Output Total 1800 ml 1550 ml 2800 ml Balance -1199 ml 39 ml -159 ml -2523 ml 100 ml Intake Oral 0 ml IV Total 601 ml 39 ml 1391 ml 277 ml 100 ml Output Urine Total 1800 ml 1450 ml 2800 ml Gastric Drainage Total 100 ml # Bowel Movements 0 3 2 Physical Exam Lungs coarse breath sounds RRR sinus tach Laboratory Laboratory Tests Test 05/17/17 09:39 05/17/17 16:25 05/17/17 19:00 05/17/17 20:15 Troponin I 0.42 NG/ML 0.17 NG/ML Blood Gas Puncture Site LT RADIAL Blood Gas Patient Temperature 98.6 Blood Gas HCO3 31 mmol/L Blood Gas Base Excess 5.7 mmol/L Blood Gas Oxygen Saturation 96 % Arterial Blood pH 7.38 Arterial Blood Partial Pressure CO2 53 mmHg Arterial Blood Partial Pressure O2 161 mmHg Arterial Blood Oxygen Content 15.9 Vol % Arterial Blood Carboxyhemoglobin 1.1 % Arterial Blood Methemoglobin 1.6 % Blood Gas Hemoglobin 11.6 G/DL Oxygen Delivery Device VENTILATOR Blood Gas Ventilator Setting CPAP+10/PS+10 Blood Gas Inspired Oxygen 30 % Potassium Level 2.8 MEQ/L Test 05/18/17 04:00 White Blood Count 12.6 TH/MM3 Red Blood Count 3.81 MIL/MM3 Hemoglobin 11.0 GM/DL Hematocrit 33.1 % Mean Corpuscular Volume 87.0 FL Mean Corpuscular Hemoglobin 28.8 PG Mean Corpuscular Hemoglobin Concent 33.1 % Red Cell Distribution Width 16.0 % Platelet Count 180 TH/MM3 Mean Platelet Volume 8.1 FL Neutrophils (%) (Auto) 84.1 % Lymphocytes (%) (Auto) 8.9 % Monocytes (%) (Auto) 6.7 % Eosinophils (%) (Auto) 0.2 % Basophils (%) (Auto) 0.1 % Neutrophils # (Auto) 10.6 TH/MM3 Lymphocytes # (Auto) 1.1 TH/MM3 Monocytes # (Auto) 0.8 TH/MM3 Eosinophils # (Auto) 0.0 TH/MM3 Basophils # (Auto) 0.0 TH/MM3 CBC Comment DIFF FINAL Differential Comment Blood Urea Nitrogen 16 MG/DL Creatinine 0.92 MG/DL Random Glucose 110 MG/DL Calcium Level 8.8 MG/DL Phosphorus Level 2.6 MG/DL Magnesium Level 1.8 MG/DL Sodium Level 142 MEQ/L Potassium Level 3.8 MEQ/L Chloride Level 103 MEQ/L Carbon Dioxide Level 30.2 MEQ/L Anion Gap 9 MEQ/L Estimat Glomerular Filtration Rate 61 ML/MIN Assessment and Plan Assessment and Plan Continue supportive care. Await echo Kwame Regan MD May 18, 2017 08:21
[2017-05-18] MEDS: FAMOTIDINE 20 MG TAB PO SCH ×2 (08:49→19:43)
[2017-05-18] MEDS: PROPRANOLOL HCL 20 MG TAB PO SCH ×2 (08:49→19:43)
[2017-05-18] MEDS: oxyCODONE/ACETAMINOPHEN 5 MG/325 MG TAB PO PRN ×2 (08:49→19:43)
--- NOTE | 2017-05-18 09:35 | ECHRPT ---
Indication: CONCLUSIONS The left ventricular systolic function is normal with an estimated ejection fraction in the range of 55-60%. Normal left ventricular size. Wall thickness is normal. No regional wall motion abnormalities are present. BP: 107 / 58 HR: 98 Rhythm: Sinus MEASUREMENTS (Male / Female) Normal Values Technical Quality:Very technically difficult study 2D ECHO LVOT Diameter 1.6 cm LV Ejection Fraction MOD 4C 57.8 % LV Cardiac Index MOD 4C 1254.8 cm/minm LV Ejection Fraction 4C AL 60.3 % LV Cardiac Index 4C AL 1349.6 cm/minm M-MODE LV Diastolic Diameter MM 5.4 cm 4.2 - 5.9 / 3.9 - 5.3 cm LV Systolic Diameter MM 3.9 cm LV Ejection Fraction MM Teich 52.2 % LV Cardiac Index MM Teich 3560.9 cm/minm IVS Diastolic Thickness MM 1.1 cm 0.6 - 1.0 / 0.6 - 0.9 cm LVPW Diastolic Thickness MM 1.1 cm 0.6 - 1.0 / 0.6 - 0.9 cm LV Relative Wall Thickness MM 0.4 0.24 - 0.42 / 0.22 - 0.42 LV Mass Index MM 113.9 g/m 49 - 115 / 43 - 95 g/m DOPPLER AV Peak Velocity 189.0 cm/s AV Peak Gradient 14.3 mmHg LVOT Peak Velocity 126.0 cm/s LVOT Peak Gradient 6.4 mmHg AV Area Cont Eq pk 1.3 cm MV Area PHT 7.3 cm Mitral E Point Velocity 78.0 cm/s Mitral A Point Velocity 86.9 cm/s Mitral E to A Ratio 0.9 PV Peak Velocity 113.0 cm/s PV Peak Gradient 5.1 mmHg FINDINGS LEFT VENTRICLE The left ventricular systolic function is normal with an estimated ejection fraction in the range of 55-60%. Normal left ventricular size. Wall thickness is normal. No regional wall motion abnormalities are present. RIGHT VENTRICLE Normal right ventricular size and systolic function. LEFT ATRIUM The left atrial size is normal. RIGHT ATRIUM The right atrial size is normal. ATRIAL SEPTUM Normal atrial septal thickness without atrial level shunting by limited color doppler interrogation. AORTA The aortic root and proximal ascending aorta are normal in size on limited imaging. MITRAL VALVE Structurally normal mitral valve. No mitral valve stenosis or regurgitation. AORTIC VALVE Trileaflet aortic valve. No aortic valve stenosis or regurgitation. TRICUSPID VALVE Structurally normal tricuspid valve. No tricuspid valve stenosis or regurgitation. PULMONARY VALVE The pulmonary valve is not well visualized. VESSELS The inferior vena cava is normal in size. PERICARDIUM No pericardial effusion. José Miguel Aleman MD, FACC Edited by: professional system administrator professional system administrator (Electronically Signed) Final Date:17 May 2017 13:33 Amended: 18 May 2017 09:34
[2017-05-18] MEDS: hydrALAZINE HCL 20 MG/ML VIAL IV PUSH PRN ×2 (12:12→16:17)
[2017-05-18] MEDS ORDERED: DILTIAZEM HCL 25 MG/5 ML VIAL IV ONE (14:00)
[2017-05-18] MEDS ORDERED: DILTIAZEM HCL 50 MG/10 ML VIAL IV ONE (14:00)
[2017-05-18] MEDS: hydrALAZINE HCL 50 MG TAB PO SCH ×2 (14:12→23:06)
[2017-05-18] MEDS ORDERED: DILTIAZEM HCL 50 MG/10 ML VIAL IV PUSH STA (14:39)
[2017-05-18] MEDS ORDERED: LORazepam 2 MG/ML VIAL IV PUSH STA (14:40)
[2017-05-18] MEDS: PREGABALIN 100 MG CAP PO SCH ×2 (16:19→19:43)
--- NOTE | 2017-05-18 16:19 | HHI.IDPN ---
Subjective Subjective Remarks extubated On VM Clx still P WBC dropped to 12 K Antibiotics azithro zosyn vanco Allergies: Coded Allergies: No Allergy Information Available (Unverified , 05/16/17) Objective . Vital Signs Date Time Temp Pulse Resp B/P (MAP) Pulse Ox O2 Delivery O2 Flow Rate FiO2 05/18/17 14:00 104 05/18/17 12:00 97.8 97 27 200/98 (132) 97 05/18/17 12:00 97 05/18/17 10:00 77 05/18/17 08:42 98 Nasal Cannula 2.00 05/18/17 08:00 88 05/18/17 08:00 97.9 88 24 196/88 (124) 97 05/18/17 07:43 100 Nasal Cannula 3.00 05/18/17 07:00 100 Nasal Cannula 4.00 05/18/17 04:00 98.6 96 36 139/62 (87) 93 05/18/17 00:00 98.3 104 16 152/81 (104) 96 05/17/17 20:49 144 145/70 05/17/17 20:44 97 Nasal Cannula 4.00 05/17/17 20:00 98.0 121 24 180/80 (113) 95 05/17/17 19:00 100 Nasal Cannula 4.00 05/17/17 18:06 100 Nasal Cannula 4.00 05/17/17 18:00 111 05/17/17 17:12 95 Nasal Cannula 4 05/18/17 05/18/17 05/19/17 15:00 23:00 07:00 Intake Total 200 ml Balance 200 ml IV Total 200 ml . Laboratory Tests Test 05/17/17 04:45 05/18/17 04:00 White Blood Count 16.1 TH/MM3 12.6 TH/MM3 Red Blood Count 4.13 MIL/MM3 3.81 MIL/MM3 Hemoglobin 11.8 GM/DL 11.0 GM/DL Hematocrit 36.2 % 33.1 % Mean Corpuscular Volume 87.5 FL 87.0 FL Mean Corpuscular Hemoglobin 28.7 PG 28.8 PG Mean Corpuscular Hemoglobin Concent 32.8 % 33.1 % Red Cell Distribution Width 15.5 % 16.0 % Platelet Count 194 TH/MM3 180 TH/MM3 Mean Platelet Volume 7.8 FL 8.1 FL Neutrophils (%) (Auto) 82.0 % 84.1 % Lymphocytes (%) (Auto) 8.3 % 8.9 % Monocytes (%) (Auto) 9.5 % 6.7 % Eosinophils (%) (Auto) 0.2 % 0.2 % Basophils (%) (Auto) 0.0 % 0.1 % Neutrophils # (Auto) 13.2 TH/MM3 10.6 TH/MM3 Lymphocytes # (Auto) 1.3 TH/MM3 1.1 TH/MM3 Monocytes # (Auto) 1.5 TH/MM3 0.8 TH/MM3 Eosinophils # (Auto) 0.0 TH/MM3 0.0 TH/MM3 Basophils # (Auto) 0.0 TH/MM3 0.0 TH/MM3 CBC Comment AUTO DIFF DIFF FINAL Differential Comment AUTO DIFF CONFIRMED Laboratory Tests Test 05/16/17 21:00 05/17/17 04:45 05/17/17 09:39 05/17/17 19:00 Phosphorus Level 3.9 MG/DL 3.1 MG/DL Troponin I 1.08 NG/ML 0.42 NG/ML 0.17 NG/ML Blood Urea Nitrogen 20 MG/DL Creatinine 1.11 MG/DL Random Glucose 140 MG/DL Total Protein 5.8 GM/DL Albumin 2.6 GM/DL Calcium Level 8.4 MG/DL Magnesium Level 2.1 MG/DL Alkaline Phosphatase 88 U/L Aspartate Amino Transf (AST/SGOT) 12 U/L Alanine Aminotransferase (ALT/SGPT) 17 U/L Total Bilirubin 0.4 MG/DL Sodium Level 143 MEQ/L Potassium Level 3.3 MEQ/L Chloride Level 103 MEQ/L Carbon Dioxide Level 33.8 MEQ/L Anion Gap 6 MEQ/L Estimat Glomerular Filtration Rate 49 ML/MIN Test 05/17/17 20:15 05/18/17 04:00 Potassium Level 2.8 MEQ/L 3.8 MEQ/L Blood Urea Nitrogen 16 MG/DL Creatinine 0.92 MG/DL Random Glucose 110 MG/DL Calcium Level 8.8 MG/DL Phosphorus Level 2.6 MG/DL Magnesium Level 1.8 MG/DL Sodium Level 142 MEQ/L Chloride Level 103 MEQ/L Carbon Dioxide Level 30.2 MEQ/L Anion Gap 9 MEQ/L Estimat Glomerular Filtration Rate 61 ML/MIN Microbiology Date/Time Source Procedure Growth Status 05/16/17 12:55 Blood Peripheral Aerobic Blood Culture - Preliminary NO GROWTH IN 2 DAYS Resulted 05/16/17 12:55 Blood Peripheral Anaerobic Blood Culture - Preliminary NO GROWTH IN 2 DAYS Resulted 05/16/17 12:50 Blood Peripheral Aerobic Blood Culture - Preliminary NO GROWTH IN 2 DAYS Resulted 05/16/17 12:50 Blood Peripheral Anaerobic Blood Culture - Preliminary NO GROWTH IN 2 DAYS Resulted 05/17/17 19:00 Sputum Endotracheal Fungal Smear - Final RARE BUDDING YEAST CELLS Resulted 05/17/17 19:00 Sputum Endotracheal Fungal Culture Pending Resulted 05/17/17 19:00 Sputum Endotracheal Acid Fast Stain Pending Received 05/17/17 19:00 Sputum Endotracheal Mycobacterial Culture Pending Received 05/17/17 19:00 Sputum Endotracheal Gram Stain - Final Resulted 05/17/17 19:00 Sputum Endotracheal Sputum Culture - Preliminary IMMATURE GROWTH - REINCUBATE Resulted 05/16/17 12:35 Sputum Expectorated Sputum Gram Stain - Final Resulted 05/16/17 12:35 Sputum Expectorated Sputum Sputum Culture - Preliminary IMMATURE GROWTH - REINCUBATE Resulted 05/16/17 12:35 Nasal Washing Influenza Types A,B Antigen (RICHY) - Final NEGATIVE FOR FLU A AND B ANTIGEN.... Complete 05/16/17 09:50 Urine Catheterized Urine Legionella Antigen - Final PRESUMPTIVE NEGATIVE FOR LEGIONELLA P... Complete 05/16/17 09:50 Urine Catheterized Urine Streptococcus pneumoniae Antigen (M - Final PRESUMPTIVE NEGATIVE FOR STREPTOCOCCU... Complete Imaging Last Impressions Chest X-Ray 05/18/17 0000 Signed Impressions: Service Date/Time: Thursday, May 18, 2017 02:52 - CONCLUSION: Slight improvement in bilateral airspace disease. Duane Feldman MD Head CT 05/16/17938 Signed Impressions: Service Date/Time: Tuesday, May 16, 2017 11:49 - CONCLUSION: 1. 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 2. Moderate periventricular and subcortical white matter small vessel ischemic changes bilaterally. 3. No acute infarct, acute hemorrhage, midline shift or extra-axial fluid collections. 4. Small fluid level within the left sphenoid sinus. Nasir Stanton MD CT Angiography 05/16/17938 Signed Impressions: Service Date/Time: Tuesday, May 16, 2017 12:00 - CONCLUSION: 1. No evidence of pulmonary embolism. 2. Severe diffuse alveolar consolidations bilaterally consistent with severe pulmonary edema versus pneumonia. Clinical correlation is recommended. 3. Cardiomegaly. 4. Tiny bilateral pleural effusions. 5. Coronary artery calcifications. 6. Several thyroid nodules bilaterally. Nasir Stanton MD Abdomen/Pelvis CT 05/16/17 0000 Signed Impressions: Service Date/Time: Tuesday, May 16, 2017 12:00 - CONCLUSION: 1. Extensive alveolar consolidations of the lungs consistent with severe pulmonary edema versus pneumonia. 2. Small pleural effusions bilaterally. 3. Cardiomegaly. 4. Uncomplicated colonic diverticulosis. 5. Degenerative changes and scoliosis of the thoracolumbar spine. Nasir Stanton MD Physical Exam CONSTITUTIONAL/GENERAL: This is an adequately nourished patient, in no apparent distress. TUBES/LINES/DRAINS: SKIN: No jaundice, rashes, or lesions. Skin temperature appropriate. Not diaphoretic. CARDIOVASCULAR: Regular rate and rhythm without murmurs, gallops, or rubs. No JVD. Peripheral pulses symmetric. RESPIRATORY/CHEST: Symmetric, unlabored respirations. b/l rhonchi to auscultation. Breath sounds equal bilaterally. No wheezes, rales, or rhonchi. GASTROINTESTINAL: Abdomen soft, non-tender, nondistended. No hepato-splenomegaly , or palpable masses. No guarding. Bowel sounds present. GENITOURINARY: Without palpable bladder distension. Longoria catheter in place. MUSCULOSKELETAL: Extremities without clubbing, cyanosis, or edema. No joint tenderness or effusion noted. No calf tenderness. No mottling or clubbing. NEUROLOGICAL: Awake and alert. Motor and sensory grossly within normal limits. Follows commands. Moves all extremities. PSYCHIATRIC: No obvious anxiety/depression. no apparent hallucinations or other psychotic thought process. Assessment & Plan Remarks PNA - clx P Acute VDRF, mixed hypoxic/hypercapnic MS on pulse sterroids CHF ? - BNP is really high REC's: cont current abx fu AFB/fungal sputum clx fu sputum, blood clx Discussed Condition With Pilar Sprague MD May 18, 2017 16:19
[2017-05-18] MEDS: VANCOMYCIN INJ 1,500 MG in SODIUM CHLORID 0.9% 500 ML INJ 500 ML IV SCH (16:20)
[2017-05-18] MEDS: AZITHROMYCIN INJ 500 MG in SODIUM CHLOR 0.9% 250 ML INJ 250 ML IV SCH (16:21)
[2017-05-19] VITALS (11 sets, daily range): BP systolic 143–207; BP diastolic 65–93; PULSE 92–112; RESP 18–29; TEMP 97.2–98.3; O2SAT 95–100
[2017-05-19] MEDS: INSULIN NovoLIN REGULAR SUPPLEMENTAL SCALE SQ SCH ×5 (04:00→20:00)
[2017-05-19] MEDS: CHLORHEXIDINE GLUCONATE 2 % 1 PACK (2 CLOTHS) TOP SCH (04:00)
[2017-05-19] MEDS: ALPRAZolam 0.5 MG TAB PO PRN ×3 (04:28→22:33)
[2017-05-19] MEDS: hydrALAZINE HCL 50 MG TAB PO SCH ×3 (04:28→21:13)
[2017-05-19] MEDS: RESP: ALBUTEROL 2.5 MG/IPRATROPIUM 0.5 MG NEB (SCH) INH ×4 (04:28→20:52)
[2017-05-19] MEDS: HEPARIN SODIUM - SQ 10,000 UNITS/ML VIAL SQ SCH ×2 (04:28→15:47)
[2017-05-19] MEDS: oxyCODONE/ACETAMINOPHEN 5 MG/325 MG TAB PO PRN ×4 (04:29→22:33)
[2017-05-19] MEDS: PIPERACIL-TAZO 4.5 GM PREMIX 100 ML IV SCH ×4 (04:29→22:26)
[2017-05-19] MEDS: DILTIAZEM HCL 60 MG TAB PO SCH ×4 (04:29→23:53)
--- NOTE | 2017-05-19 05:37 | RADRPT ---
EXAM DATE/TIME: 05/19/2017 03:54 [facility] COMPARISON: CHEST SINGLE AP, May 18, 2017, 2:52. INDICATIONS : Shortness of breath. MEDICAL HISTORY : None. SURGICAL HISTORY : None. ENCOUNTER: Subsequent ACUITY: 4 - 6 days PAIN SCORE: Non-responsive. LOCATION: Bilateral chest FINDINGS: A single view of the chest demonstrates minimal residual density in the left perihilar and right lowe r lobe. Lungs are improved and better aerated. Heart borderline enlarged.. Osseous structures are in tact. CONCLUSION: Significant improvement of the airspace disease with minimal residual disease in the left perihilar a nd right lower lobe. Duane Feldman MD on May 19, 2017 at 5:34 Board Certified Radiologist. This report was verified electronically.
[2017-05-19] MEDS: hydrALAZINE HCL 20 MG/ML VIAL IV PUSH PRN (07:29)
[2017-05-19] MEDS: LACTULOSE SYRUP 20 GM/30 ML CUP PO SCH ×3 (07:29→18:00)
[2017-05-19] MEDS: MORPHINE SULFATE 4 MG/ML INJ IV PUSH PRN ×4 (07:31→21:16)
[2017-05-19] MEDS: PROPRANOLOL HCL 20 MG TAB PO SCH ×2 (07:31→21:13)
[2017-05-19] MEDS: CHLORHEXIDINE 0.12% (ORAL KIT) 15 ML CUP MT SCH ×2 (07:31→20:00)
[2017-05-19] MEDS: FAMOTIDINE 20 MG TAB PO SCH ×2 (07:31→21:14)
[2017-05-19] MEDS: PREGABALIN 100 MG CAP PO SCH ×2 (07:31→21:13)
[2017-05-19] MEDS: DOCUSATE SODIUM 50 MG/SENNA 8.6 MG TAB PO SCH ×2 (07:31→21:00)
[2017-05-19 08:34] LABS: AUTOMATED NEUTROPHIL # 7.8 TH/MM3 (1.8-7.7); EOSINOPHIL % 0.5 % (0.0-4.0); HEMATOCRIT 36.3 % (35.0-46.0); HEMOGLOBIN 12.4 GM/DL (11.6-15.3); LYMPH % 8.4 % (9.0-44.0); LYMPHOCYTE # 0.8 TH/MM3 (1.0-4.8); MEAN CELL VOLUME 86.2 FL (80.0-100.0); MEAN CORPUSCULAR HEMOGLOBIN 29.4 PG (27.0-34.0); MEAN CORPUSCULAR HGB CONC 34.1 % (32.0-36.0); MONO % 7.6 % (0.0-8.0); MONOCYTE # 0.7 TH/MM3 (0-0.9); NEUT % 83.5 % (16.0-70.0); PLATELET COUNT 205 TH/MM3 (150-450); RED BLOOD COUNT 4.21 MIL/MM3 (4.00-5.30); RED CELL DISTRIBUTION WIDTH 16.1 % (11.6-17.2); WHITE BLOOD COUNT 9.3 TH/MM3 (4.0-11.0)
[2017-05-19 08:59] LABS: BICARBONATE 23.1 MEQ/L (21.0-32.0); CALCIUM 8.5 MG/DL (8.5-10.1); CREATININE 0.68 MG/DL (0.50-1.00); MAGNESIUM 1.7 MG/DL (1.5-2.5); PHOSPHORUS 3.3 MG/DL (2.5-4.9)
--- NOTE | 2017-05-19 11:11 | HHI.CCPN ---
Subjective Remarks/Hospital Course Patient is an approximately [id number] female who presented to [facility] ED via EMS for altered mental status. According to ED records, patient had a fall this morning and was unresponsive on scene. On scene, she was found to have a GCS score of 6. The patient has a history of multiple sclerosis. On arrival to the ER, the patient was hypoxic with O2 saturation in the 80s and unresponsive. She was intubated and placed on full mechanical ventilation. In addition, she was started on a Diprivan infusion for sedation. On arrival to the ED, she was hypertensive with a systolic blood pressure 170s-200s and tachycardic with heart rate of 120s -130s. Her initial ABG post-intubation showed acute hypercapnic and hypoxemic respiratory acidosis with a pH of 7.22, CO2 of 73, PaO2 of 75, and bicarbonate of 29. A repeat ABG was done at 12:45, which showed some improvement in her respiratory acidosis with a pH of 7.28, CO2 of 66 on PRVC mode, tidal volume 500, respiratory rate of 18, I time 1.0, PEEP of 10 and 100% FIO2. Her initial chest x-ray in the ER showed diffuse bilateral pulmonary infiltrates consistent with moderate pulmonary edema versus pneumonia. She subsequently underwent CT angiogram of the chest, which showed no evidence of pulmonary embolism; however, it showed severe diffuse alveolar consolidations, tiny bilateral pleural effusions and several thyroid nodules. Also, she had CT brain, which showed no acute infarct, hemorrhage, or midline shift. CT scan of the abdomen and pelvis was obtained as well, which showed colonic diverticulosis, small pleural effusions and extensive alveolar consolidation of the lungs at the bases. In the ER, she was given cefepime, vancomycin, fentanyl, Versed, bronchodilator treatment and placed on nitroglycerine drip. Her laboratory data is significant for a leukocytosis with a WBC of 33.1, BNP of 840 with troponin 0.06. Her lactic acid level measured at 1.3. The patient was transferred to [facility], room 518. When seen, she was on Diprivan for sedation, hypertensive and tachycardic. Her urine drug screen was positive for cannabinoids, benzodiazepines, and opiates. 05/17 Patient remains intubated and sedated with Diprivan and Fentanyl drips. Afebrile. WBC is trending down. 05/18 Patient was extubated yesterday on 3L oxygen. Awake and alert. 05/19: Remains on nasal cannula. Has some wheezing this morning. Wishes to go home. Not in any acute distress. Objective Vital Signs Date Time Temp Pulse Resp B/P (MAP) Pulse Ox O2 Delivery O2 Flow Rate FiO2 05/19/17 08:17 97 Nasal Cannula 2.00 05/19/17 08:00 98.1 92 24 170/77 (108) 05/17/17 15:54 30 Intake and Output 05/19/17 05/19/17 05/20/17 08:00 16:00 00:00 Intake Total 679 ml Output Total 1300 ml Balance -621 ml Result Diagram: 05/19/17 0741 05/19/17 0741 Other Results Microbiology Date/Time Source Procedure Growth Status 05/17/17 19:00 Sputum Endotracheal Gram Stain - Final Complete 05/17/17 19:00 Sputum Endotracheal Sputum Culture - Final MODERATE GROWTH NORMAL RESPIRATORY YASEMIN Complete 05/16/17 12:35 Sputum Expectorated Sputum Gram Stain - Final Complete 05/16/17 12:35 Sputum Expectorated Sputum Sputum Culture - Final HEAVY GROWTH NORMAL RESPIRATORY YASEMIN Complete 05/16/17 12:35 Nasal Washing Influenza Types A,B Antigen (IRCHY) - Final NEGATIVE FOR FLU A AND B ANTIGEN.... Complete Imaging Last Impressions Chest X-Ray 05/17/17 0400 Signed Impressions: Service Date/Time: Wednesday, May 17, 2017 03:21 - CONCLUSION: Bilateral airspace disease greater left lung, slightly improved. Duane Feldman MD Head CT 05/16/1755 Signed Impressions: Service Date/Time: Tuesday, May 16, 2017 11:49 - CONCLUSION: 1. 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 2. Moderate periventricular and subcortical white matter small vessel ischemic changes bilaterally. 3. No acute infarct, acute hemorrhage, midline shift or extra-axial fluid collections. 4. Small fluid level within the left sphenoid sinus. Nasir Stanton MD CT Angiography 05/16/1756 Signed Impressions: Service Date/Time: Tuesday, May 16, 2017 12:00 - CONCLUSION: 1. No evidence of pulmonary embolism. 2. Severe diffuse alveolar consolidations bilaterally consistent with severe pulmonary edema versus pneumonia. Clinical correlation is recommended. 3. Cardiomegaly. 4. Tiny bilateral pleural effusions. 5. Coronary artery calcifications. 6. Several thyroid nodules bilaterally. Nasir Stanton MD Abdomen/Pelvis CT 05/16/17 0000 Signed Impressions: Service Date/Time: Tuesday, May 16, 2017 12:00 - CONCLUSION: 1. Extensive alveolar consolidations of the lungs consistent with severe pulmonary edema versus pneumonia. 2. Small pleural effusions bilaterally. 3. Cardiomegaly. 4. Uncomplicated colonic diverticulosis. 5. Degenerative changes and scoliosis of the thoracolumbar spine. Nasir Stanton MD Objective Remarks GENERAL: Patient is 62 yo lying in bed in NAD SKIN: Warm and dry. HEAD: Normocephalic. EYES: No scleral icterus. No injection or drainage. NECK: Supple, trachea midline. No JVD or lymphadenopathy. CARDIOVASCULAR: Regular rate and rhythm without murmurs, gallops, or rubs. RESPIRATORY: Breath sounds equal bilaterally. No accessory muscle use. Scattered rhonchi and wheezing bilaterally. GASTROINTESTINAL: Abdomen soft, non-tender, nondistended. MUSCULOSKELETAL: No cyanosis, or edema. Neuro: Awake alert oriented 3, nonfocal grossly. A/P Assessment and Plan 1. Acute resp failure -extubated 05/17 2. suspected pneumonia- improving 3. Elevated trop 4. Probable COPD 5. Hyperglycemia. 6. Mild acute kidney injury. 7. Hypertenion 8. Polysubstance abuse with urine drug screen positive for cannabinoids, opiates and benzodiazepines. 9. History of multiple sclerosis. Plan Neuro: Awake and alert CT brain in the ED negative for acute intracranial process. UDS positive for opiates, benzodiazepines and cannabinoids. Neuro is following for hx of MS On Lyrica 100mg Q12 Pulm: Continue with oxygen and maintain sats > 92%. Bronchodilators, IS NIPPV PRN for resp distress CV: Monitor HR and BP keep MAP>65mmHg On Cardizem 60 mg q. 6. Monitor Lactic acid level measured 1.3. for 2D echo, cards is following- Dr. Regan mild elevated trop likely stress mediated 2nd hypoxemia, pneumonia : Monitor renal function, I's and O's and electrolyte replacement as needed. GI: On Pepcid 20 mg PO q. 12 hours for GI prophylaxis. Speech eval, ID: Continue abx(vancomycin, Zosyn and azithromycin). Monitor for signs of infections( fever and WBC). WBC is trending down Nasal washing in the ED negative for influenza. strep pneumonia and legionella urinary antigen negative BC, sputum cx 05/16: NGTD Endo: On medium scale sliding scale insulin for glycemic control. TSH level measured at 0.89. Heme: Monitor CBC. GI prophylaxis with Pepcid and DVT prophylaxis with SCDs and heparin subq. Lines: Peripheral IV's, Consult and transfer to hospitalist service for further medical management. Critical care signing off, please reconsult if needed. Level 2 Reza Stewart MD May 19, 2017 11:11
[2017-05-19] MEDS: POTASSIUM CHLORIDE 20 MEQ CONTROLLED RELEASE TAB PO SCH ×3 (12:03→15:48)
[2017-05-19] MEDS: MORPHINE SULFATE 15 MG TAB PO PRN ×3 (12:12→21:14)
[2017-05-19] MEDS: AZITHROMYCIN INJ 500 MG in SODIUM CHLOR 0.9% 250 ML INJ 250 ML IV SCH (15:47)
[2017-05-19] MEDS ORDERED: PHARMACY ORDERED LAB ONE (16:45)
[2017-05-19] MEDS: VANCOMYCIN INJ 1,500 MG in SODIUM CHLORID 0.9% 500 ML INJ 500 ML IV SCH (18:14)
[2017-05-20] VITALS (7 sets, daily range): BP systolic 138–171; BP diastolic 65–79; PULSE 84–98; RESP 16–20; TEMP 97.4–97.5; O2SAT 97–100
[2017-05-20] MEDS: RESP: ALBUTEROL 2.5 MG/IPRATROPIUM 0.5 MG NEB (SCH) INH ×3 (03:19→15:51)
[2017-05-20] MEDS: MORPHINE SULFATE 4 MG/ML INJ IV PUSH PRN ×3 (03:42→14:50)
[2017-05-20] MEDS: MORPHINE SULFATE 15 MG TAB PO PRN ×3 (03:42→14:51)
[2017-05-20] MEDS: SODIUM CHLORIDE 0.9% FLUSH 10 ML FLUSH IV FLUSH PRN (03:43)
[2017-05-20] MEDS: HEPARIN SODIUM - SQ 10,000 UNITS/ML VIAL SQ SCH ×2 (03:44→16:00)
[2017-05-20] MEDS: PIPERACIL-TAZO 4.5 GM PREMIX 100 ML IV SCH ×2 (03:49→10:25)
[2017-05-20] MEDS: INSULIN NovoLIN REGULAR SUPPLEMENTAL SCALE SQ SCH ×5 (03:56→16:00)
[2017-05-20] MEDS: CHLORHEXIDINE GLUCONATE 2 % 1 PACK (2 CLOTHS) TOP SCH (04:00)
[2017-05-20] MEDS: DILTIAZEM HCL 60 MG TAB PO SCH ×2 (05:44→12:34)
[2017-05-20] MEDS: oxyCODONE/ACETAMINOPHEN 5 MG/325 MG TAB PO PRN ×2 (05:44→12:33)
[2017-05-20] MEDS: hydrALAZINE HCL 50 MG TAB PO SCH ×2 (05:44→14:50)
[2017-05-20] MEDS ORDERED: VANCOMYCIN INJ 2,000 MG in SODIUM CHLORID 0.9% 500 ML INJ 500 ML IV SCH (06:00)
[2017-05-20] MEDS: ALPRAZolam 0.5 MG TAB PO PRN ×2 (06:29→14:51)
[2017-05-20] MEDS: CHLORHEXIDINE 0.12% (ORAL KIT) 15 ML CUP MT SCH (08:00)
--- NOTE | 2017-05-20 08:18 | PD.CARD.PN ---
Subjective Subjective Remarks Denies chest pain or palpitations. Anxious to go home. Objective Medications Current Medications Medications (Trade) Dose Ordered Sig/Maria Alejandra Route Start Time Stop Time Status Last Admin (NS Flush) 2 ml UNSCH PRN IVF 05/16/17 09:45 (NS Flush) 2 ml UNSCH PRN IV FLUSH 05/16/17 09:45 05/20/17 03:43 (Duoneb Neb) 1 ampule Q6HR NEB INH 05/16/17 16:00 05/19/17 20:52 (Heparin Inj) 5,000 units Q12H SQ 05/16/17 16:00 05/20/17 03:44 Miscellaneous Information 1 Q361D XX 05/16/17 15:00 (Chlorhexidine 2% Cloth) 3 pack Taper DAILY@04 TOP 05/17/17 04:00 05/13/18 03:59 05/20/17 04:00 (Chlorhexidine 2% Cloth) 3 pack UNSCH PRN TOP 05/16/17 15:00 (Ana-Colace) 1 tab BID PO 05/16/17 21:00 05/19/17 07:31 (Milk Of Magnesia Liq) 30 ml Q12H PRN PO 05/16/17 15:00 (Senokot) 17.2 mg Q12H PRN PO 05/16/17 15:00 (Dulcolax Supp) 10 mg DAILY PRN RECTAL 05/16/17 16:00 (Lactulose Liq) 30 ml DAILY PRN PO 05/16/17 15:00 (Peridex 0.12% Liq) 15 ml BID@08,20 MT 05/16/17 20:00 05/19/17 07:31 Pharmacy Profile Note 0 ml @ 0 mls/hr UNSCH OTHER 05/16/17 15:00 Piperacillin Sod/ Tazobactam Sod 100 ml @ 200 mls/hr Q6H IV 05/16/17 16:00 05/20/17 03:49 Azithromycin 500 mg/Sodium Chloride 250 ml @ 250 mls/hr Q24H IV 05/16/17 16:00 05/19/17 15:47 (D50w (Vial) Inj) 50 ml UNSCH PRN IV PUSH 05/16/17 15:00 (Glucagon Inj) 1 mg UNSCH PRN OTHER 05/16/17 15:00 (NovoLIN R SUPPLEMENTAL SCALE) 1 Q4H SQ 05/16/17 16:00 (Lactulose Liq) 30 ml TID PO 05/16/17 18:00 05/19/17 12:02 (Cardizem) 60 mg Q6HR PO 05/16/17 16:00 05/20/17 05:44 (Pepcid) 20 mg BID PO 05/17/17 21:00 05/19/17 21:14 (Morphine Inj) 1 mg Q4H PRN IV PUSH 05/17/17 17:45 05/20/17 03:42 (Inderal) 20 mg Q12HR PO 05/17/17 23:15 05/19/17 21:13 (Lyrica) 100 mg Q12HR PO 05/18/17 09:00 05/19/17 21:13 (Xanax) 0.5 mg Q8H PRN PO 05/17/17 23:15 05/20/17 06:29 (Percocet 5-325 Mg) 1 tab Q6H PRN PO 05/17/17 23:15 05/20/17 05:44 (Msir) 15 mg Q4H PRN PO 05/17/17 23:30 05/20/17 03:42 (Apresoline Inj) 10 mg Q4H PRN IV PUSH 05/18/17 11:30 05/19/17 07:29 (Apresoline) 50 mg Q8HR PO 05/18/17 14:00 05/20/17 05:44 Vancomycin HCl 2000 mg/Sodium Chloride 520 ml @ 250 mls/hr Q12H IV 05/20/17 06:00 05/20/17 05:43 Miscellaneous Information SPECIFIC LAB TO BE MINH... ONCE ONCE .XX 05/21/17 17:45 05/21/17 17:46 Vital Signs / I&O Vital Signs Date Time Temp Pulse Resp B/P (MAP) Pulse Ox O2 Delivery O2 Flow Rate FiO2 05/20/17 04:16 84 05/20/17 04:00 97.4 86 20 171/79 (109) 97 05/20/17 00:34 86 05/19/17 23:00 97.9 96 20 155/71 (99) 97 05/19/17 23:00 Room Air 05/19/17 20:16 98.2 100 20 162/75 (104) 98 05/19/17 20:08 103 05/19/17 20:00 Room Air 05/19/17 16:00 97.9 106 20 153/70 (97) 100 05/19/17 14:52 96 Nasal Cannula 2.00 30 05/19/17 12:00 98.3 101 18 143/65 (91) 98 I/O 05/19/17 05/19/17 05/19/17 05/20/17 05/20/17 05/20/17 07:00 15:00 23:00 07:00 15:00 23:00 Intake Total 679 ml 620 ml 320 ml Output Total 1300 ml 1200 ml Balance -621 ml -580 ml 320 ml Intake Oral 480 ml 620 ml 320 ml IV Total 199 ml Output Urine Total 1300 ml 1200 ml # Voids 3 # Bowel Movements 0 3 0 Physical Exam Lungs coarse breath sounds RRR sinus tach Laboratory Laboratory Tests Test 05/19/17 16:58 05/19/17 21:28 Vancomycin Level Trough 6.3 MCG/ML Potassium Level 4.2 MEQ/L Assessment and Plan Assessment and Plan Stable CV. BP high have added lisinopril. Will sign off Kwame Regan MD May 20, 2017 08:18
[2017-05-20] MEDS ORDERED: LISINOPRIL 10 MG TAB PO SCH (09:00)
[2017-05-20] MEDS: LACTULOSE SYRUP 20 GM/30 ML CUP PO SCH ×2 (09:00→12:34)
[2017-05-20] MEDS: DOCUSATE SODIUM 50 MG/SENNA 8.6 MG TAB PO SCH (09:00)
--- NOTE | 2017-05-20 10:01 | HHI.PR ---
Review/Management Daily Summary seen this am doing well well oriented verbalizing normally ambulates for me resolved encephaloopathy MS eusebiodera as outpt apparently was receiving solumedrol IV at home when became ill ok neuro sanchez to be d/angel and follow with dr Licona Subjective Subjective Comments No acute events reported No headache Active Medications Current Medications Medications (Trade) Dose Ordered Sig/Maria Alejandra Route Start Time Stop Time Status Last Admin (NS Flush) 2 ml UNSCH PRN IVF 05/16/17 09:45 (NS Flush) 2 ml UNSCH PRN IV FLUSH 05/16/17 09:45 05/20/17 03:43 (Duoneb Neb) 1 ampule Q6HR NEB INH 05/16/17 16:00 05/19/17 20:52 (Heparin Inj) 5,000 units Q12H SQ 05/16/17 16:00 05/20/17 03:44 Miscellaneous Information 1 Q361D XX 05/16/17 15:00 (Chlorhexidine 2% Cloth) 3 pack Taper DAILY@04 TOP 05/17/17 04:00 05/13/18 03:59 05/20/17 04:00 (Chlorhexidine 2% Cloth) 3 pack UNSCH PRN TOP 05/16/17 15:00 (Ana-Colace) 1 tab BID PO 05/16/17 21:00 05/19/17 07:31 (Milk Of Magnesia Liq) 30 ml Q12H PRN PO 05/16/17 15:00 (Senokot) 17.2 mg Q12H PRN PO 05/16/17 15:00 (Dulcolax Supp) 10 mg DAILY PRN RECTAL 05/16/17 16:00 (Lactulose Liq) 30 ml DAILY PRN PO 05/16/17 15:00 (Peridex 0.12% Liq) 15 ml BID@08,20 MT 05/16/17 20:00 05/19/17 07:31 Pharmacy Profile Note 0 ml @ 0 mls/hr UNSCH OTHER 05/16/17 15:00 Piperacillin Sod/ Tazobactam Sod 100 ml @ 200 mls/hr Q6H IV 05/16/17 16:00 05/20/17 03:49 Azithromycin 500 mg/Sodium Chloride 250 ml @ 250 mls/hr Q24H IV 05/16/17 16:00 05/19/17 15:47 (D50w (Vial) Inj) 50 ml UNSCH PRN IV PUSH 05/16/17 15:00 (Glucagon Inj) 1 mg UNSCH PRN OTHER 05/16/17 15:00 (NovoLIN R SUPPLEMENTAL SCALE) 1 Q4H SQ 05/16/17 16:00 (Lactulose Liq) 30 ml TID PO 05/16/17 18:00 05/19/17 12:02 (Cardizem) 60 mg Q6HR PO 05/16/17 16:00 05/20/17 05:44 (Pepcid) 20 mg BID PO 05/17/17 21:00 05/19/17 21:14 (Morphine Inj) 1 mg Q4H PRN IV PUSH 05/17/17 17:45 05/20/17 03:42 (Inderal) 20 mg Q12HR PO 05/17/17 23:15 05/19/17 21:13 (Lyrica) 100 mg Q12HR PO 05/18/17 09:00 05/19/17 21:13 (Xanax) 0.5 mg Q8H PRN PO 05/17/17 23:15 05/20/17 06:29 (Percocet 5-325 Mg) 1 tab Q6H PRN PO 05/17/17 23:15 05/20/17 05:44 (Msir) 15 mg Q4H PRN PO 05/17/17 23:30 05/20/17 03:42 (Apresoline Inj) 10 mg Q4H PRN IV PUSH 05/18/17 11:30 05/19/17 07:29 (Apresoline) 50 mg Q8HR PO 05/18/17 14:00 05/20/17 05:44 Vancomycin HCl 2000 mg/Sodium Chloride 520 ml @ 250 mls/hr Q12H IV 05/20/17 06:00 05/20/17 05:43 Miscellaneous Information SPECIFIC LAB TO BE MINH... ONCE ONCE .XX 05/21/17 17:45 05/21/17 17:46 (Prinivil) 10 mg DAILY PO 05/20/17 09:00 Allergies Allergies Coded Allergies No Allergy Information Available (Unverified05/16/17) Exam I&O / VS Vital Signs Date Time Temp Pulse Resp B/P (MAP) Pulse Ox O2 Delivery O2 Flow Rate FiO2 05/20/17 08:00 97.5 98 16 145/69 (94) 98 05/20/17 04:16 84 05/20/17 04:00 97.4 86 20 171/79 (109) 97 05/20/17 00:34 86 05/19/17 23:00 97.9 96 20 155/71 (99) 97 05/19/17 23:00 Room Air 05/19/17 20:16 98.2 100 20 162/75 (104) 98 05/19/17 20:08 103 05/19/17 20:00 Room Air 05/19/17 16:00 97.9 106 20 153/70 (97) 100 05/19/17 14:52 96 Nasal Cannula 2.00 30 05/19/17 12:00 98.3 101 18 143/65 (91) 98 Objective Micro and Labs Laboratory Tests Test 05/19/17 16:58 05/19/17 21:28 Vancomycin Level Trough 6.3 Potassium Level 4.2 Date/Time Source Procedure Growth Status 05/16/17 12:55 Blood Peripheral Aerobic Blood Culture - Preliminary NO GROWTH IN 3 DAYS Resulted 05/16/17 12:55 Blood Peripheral Anaerobic Blood Culture - Preliminary NO GROWTH IN 3 DAYS Resulted 05/17/17 19:00 Sputum Endotracheal Fungal Smear - Final RARE BUDDING YEAST CELLS Resulted 05/17/17 19:00 Sputum Endotracheal Fungal Culture Pending Resulted 05/16/17 09:50 Urine Catheterized Urine Legionella Antigen - Final PRESUMPTIVE NEGATIVE FOR LEGIONELLA P... Complete 05/16/17 09:50 Urine Catheterized Urine Streptococcus pneumoniae Antigen (M - Final PRESUMPTIVE NEGATIVE FOR STREPTOCOCCU... Complete Nirmal Montgomery MD May 20, 2017 10:01
[2017-05-20] MEDS: PROPRANOLOL HCL 20 MG TAB PO SCH (10:16)
[2017-05-20] MEDS: FAMOTIDINE 20 MG TAB PO SCH (10:17)
[2017-05-20] MEDS: PREGABALIN 100 MG CAP PO SCH (10:20)
--- NOTE | 2017-05-20 15:14 | HHI.PR ---
Subjective Remarks No new complaints. Pt is adamant that she wants to leave immediately to care for her son and dog. Objective Vitals Vital Signs Date Time Temp Pulse Resp B/P (MAP) Pulse Ox O2 Delivery O2 Flow Rate FiO2 05/20/17 12:00 97.4 87 18 147/70 (95) 99 05/20/17 10:06 100 21 05/20/17 08:00 97.5 98 16 145/69 (94) 98 05/20/17 08:00 98 05/20/17 04:16 84 05/20/17 04:00 97.4 86 20 171/79 (109) 97 05/20/17 00:34 86 05/19/17 23:00 97.9 96 20 155/71 (99) 97 05/19/17 23:00 Room Air 05/19/17 20:16 98.2 100 20 162/75 (104) 98 05/19/17 20:08 103 05/19/17 20:00 Room Air 05/19/17 16:00 97.9 106 20 153/70 (97) 100 Result Diagram: 05/19/17 0741 05/19/172127 Imaging Last Impressions Chest X-Ray 05/19/17 0000 Signed Impressions: Service Date/Time: Friday, May 19, 2017 03:54 - CONCLUSION: Significant improvement of the airspace disease with minimal residual disease in the left perihilar and right lower lobe. Duane Feldman MD Head CT 05/16/1739 Signed Impressions: Service Date/Time: Tuesday, May 16, 2017 11:49 - CONCLUSION: 1. 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 2. Moderate periventricular and subcortical white matter small vessel ischemic changes bilaterally. 3. No acute infarct, acute hemorrhage, midline shift or extra-axial fluid collections. 4. Small fluid level within the left sphenoid sinus. Nasir Stanton MD CT Angiography 05/16/17938 Signed Impressions: Service Date/Time: Tuesday, May 16, 2017 12:00 - CONCLUSION: 1. No evidence of pulmonary embolism. 2. Severe diffuse alveolar consolidations bilaterally consistent with severe pulmonary edema versus pneumonia. Clinical correlation is recommended. 3. Cardiomegaly. 4. Tiny bilateral pleural effusions. 5. Coronary artery calcifications. 6. Several thyroid nodules bilaterally. Nasir Stanton MD Abdomen/Pelvis CT 05/16/17 0000 Signed Impressions: Service Date/Time: Tuesday, May 16, 2017 12:00 - CONCLUSION: 1. Extensive alveolar consolidations of the lungs consistent with severe pulmonary edema versus pneumonia. 2. Small pleural effusions bilaterally. 3. Cardiomegaly. 4. Uncomplicated colonic diverticulosis. 5. Degenerative changes and scoliosis of the thoracolumbar spine. Nasir Stanton MD Objective Remarks GENERAL: This is a well-nourished, well-developed patient, in no apparent distress. CARDIOVASCULAR: Regular rate and rhythm without murmurs, gallops, or rubs. RESPIRATORY: Clear to auscultation. Breath sounds equal bilaterally. No wheezes , rales, or rhonchi. GASTROINTESTINAL: Abdomen soft, non-tender, nondistended. Normal active bowel sounds MUSCULOSKELETAL: Extremities without clubbing, cyanosis, or edema. NEURO: Alert & Oriented x4 to person, place, time, situation. Moves all ext x4 A/P Problem List: (1) Pneumonia ICD Codes: J18.9 - Pneumonia, unspecified organism Status: Acute Plan: - Pt admitted with Respiratory Failure - Pt's toxicology screen was positive for opioids, benzodiazepine, and marijuana - Pt required mechanical ventilation and ICU stay - Pt extubated 05/20/17 - CTA chest showed pulm edema vs infiltrate - Pt's WBC was 31k upon admission - Case d/w [facility], Dr. Reeves (05/20) - Pt felt to have pneumonia - Pt received IV antibiotics: azithromycin, zosyn, vancomyin - stop IV antibiotics - start PO levaquin in the AM - Pt adamantly refused continued hospitalization - If I do not discharge, she will leave AMA - will discharge on PO levaquin, duonebs - f/u with PCP, Dr. Kwame Shaffer in 1 week - return to ER if any problems (2) Multiple sclerosis ICD Codes: G35 - Multiple sclerosis Status: Chronic Plan: - resume outpt regimen - f/u with Neurologist, Dr. Yoseph Licona, in 1 week (3) HTN (hypertension) ICD Codes: I10 - Essential (primary) hypertension Status: Chronic Plan: - resume home BP regimen upon discharge Problem Qualifiers (1) Pneumonia: Qualified Codes: J18.9 - Pneumonia, unspecified organism (2) HTN (hypertension): Qualified Codes: I10 - Essential (primary) hypertension Jasper Galvan DO May 20, 2017 15:14
[2017-05-20] MEDS ORDERED: LEVA500T33 PO (15:35)
[2017-05-20] MEDS ORDERED: ADVA100A INH (15:40)
--- NOTE | 2017-05-20 15:42 | HHI.DS ---
Discharge Summary Admission Date May 16, 2017 at 11:41 Admitting Diagnosis ARDS; Sepsis (1) Pneumonia ICD Codes: J18.9 - Pneumonia, unspecified organism Status: Acute (2) Multiple sclerosis ICD Codes: G35 - Multiple sclerosis Status: Chronic (3) HTN (hypertension) ICD Codes: I10 - Essential (primary) hypertension Status: Chronic CBC/BMP: 05/19/17 0741 05/19/17 2128 Significant Findings Laboratory Tests Test 05/17/17 16:25 05/17/17 19:00 05/17/17 20:15 05/18/17 04:00 Blood Gas HCO3 31 mmol/L (22-26) Blood Gas Base Excess 5.7 mmol/L (-2-2) Arterial Blood Partial Pressure CO2 53 mmHg (38-42) Arterial Blood Partial Pressure O2 161 mmHg (61-120) Blood Gas Hemoglobin 11.6 G/DL (12.0-16.0) Troponin I 0.17 NG/ML (0.02-0.05) Potassium Level 2.8 MEQ/L (3.5-5.1) White Blood Count 12.6 TH/MM3 (4.0-11.0) Red Blood Count 3.81 MIL/MM3 (4.00-5.30) Hemoglobin 11.0 GM/DL (11.6-15.3) Hematocrit 33.1 % (35.0-46.0) Neutrophils (%) (Auto) 84.1 % (16.0-70.0) Lymphocytes (%) (Auto) 8.9 % (9.0-44.0) Neutrophils # (Auto) 10.6 TH/MM3 (1.8-7.7) Random Glucose 110 MG/DL (74-106) Estimat Glomerular Filtration Rate 61 ML/MIN (>89) Test 05/19/17 07:41 05/19/17 16:58 05/19/17 21:28 Neutrophils (%) (Auto) 83.5 % (16.0-70.0) Lymphocytes (%) (Auto) 8.4 % (9.0-44.0) Neutrophils # (Auto) 7.8 TH/MM3 (1.8-7.7) Lymphocytes # (Auto) 0.8 TH/MM3 (1.0-4.8) Random Glucose 107 MG/DL (74-106) Potassium Level 2.8 MEQ/L (3.5-5.1) Estimat Glomerular Filtration Rate 87 ML/MIN (>89) PE at Discharge GENERAL: This is a well-nourished, well-developed patient, in no apparent distress. CARDIOVASCULAR: Regular rate and rhythm without murmurs, gallops, or rubs. RESPIRATORY: Clear to auscultation. Breath sounds equal bilaterally. No wheezes , rales, or rhonchi. GASTROINTESTINAL: Abdomen soft, non-tender, nondistended. Normal active bowel sounds MUSCULOSKELETAL: Extremities without clubbing, cyanosis, or edema. NEURO: Alert & Oriented x4 to person, place, time, situation. Moves all ext x4 Jasper Galvan DO May 20, 2017 15:41
[2017-05-20] MEDS ORDERED: PERC5TAB12 PO (15:48)
[2017-05-20] MEDS ORDERED: METO25TA3 PO (15:48)
[2017-05-20] MEDS ORDERED: LYRI150C PO (15:48)
[2017-05-20] MEDS ORDERED: VARE1PAK3 PO (15:48)
[2017-05-20] MEDS ORDERED: POTA-163 PO (15:48)
[2017-05-20] MEDS ORDERED: CALC1TAB12 PO (15:48)
[2017-05-20] MEDS ORDERED: FURO40TA PO (15:48)
[2017-05-20] MEDS ORDERED: DULO1CAP3 PO (15:48)
[2017-05-20] MEDS ORDERED: BETH10TA2 PO (15:48)
[2017-05-20] MEDS ORDERED: DIME240C PO (15:48)
[2017-05-20] MEDS ORDERED: ALPR0.5T3 PO (15:48)
--- NOTE | 2017-05-20 15:53 | HHI.DCPOC ---
Discharge Care Plan Diagnosis: (1) Respiratory distress (2) Multiple sclerosis (3) Pneumonia (4) HTN (hypertension) Goals to Promote Your Health * To prevent worsening of your condition and complications * To maintain your health at the optimal level Directions to Meet Your Goals Take your medications as prescribed Follow your dietary instruction Follow activity as directed Keep your appointments as scheduled Take your immunizations and boosters as scheduled If your symptoms worsen call your PCP, if no PCP go to Urgent Care Center or Emergency Room Smoking is Dangerous to Your Health. Avoid second hand smoke Call the 24-hour hour crisis hotline for domestic abuse at Beatriz Montero May 20, 2017 15:53
--- NOTE | 2017-05-21 11:41 | EKG ---
Date Performed: 05/20/2017 Time Performed: 16:05:44 PTAGE: 62 years EKG: Sinus rhythm NONSPECIFIC T-WAVE ABNORMALITY BORDERLINE ECG PREVIOUS TRACING : 05/16/2017 10.15 Since the previous tracing, no significant change noted DOCTOR: Kwame Regan Interpretating Date/Time 05/21/2017 11:34:24
[2017-05-21] MEDS ORDERED: LEVOFLOXACIN 500 MG TAB PO SCH (15:15)
[2017-05-21] MEDS ORDERED: PHARMACY ORDERED LAB ONE (17:45)
== END 2017-05-20 18:30 | disposition home or self-care (01) | DRG 208 ==
LOC: PHED 09:33 → PHEDA 11:41 → EDBD 11:41 → HIMN 14:45 → N04B 05-19 14:05
PROVIDERS: ADMIT Internal Medicine Critical Care Medicine; ATTEND Internal Medicine Critical Care Medicine
PROC: 02HV33Z Insertion of Infusion Device into Superior Vena Cava, Percutaneous Approach (ICD-10-PCS; principal; 2017-05-16)
PROC: 5A1945Z Respiratory Ventilation, 24-96 Consecutive Hours (ICD-10-PCS; 2017-05-16)
PROC: 0BH17EZ Insertion of Endotracheal Airway into Trachea, Via Natural or Artificial Opening (ICD-10-PCS; 2017-05-16)
DX: J96.22 Acute and chronic respiratory failure with hypercapnia (principal); G93.40 Encephalopathy, unspecified; N17.9 Acute kidney failure, unspecified; J18.9 Pneumonia, unspecified organism; J44.0 Chronic obstructive pulmonary disease with (acute) lower respiratory infection; E87.2 Acidosis; G35 Multiple sclerosis; R00.0 Tachycardia, unspecified; K57.30 Diverticulosis of large intestine without perforation or abscess without bleeding; J96.21 Acute and chronic respiratory failure with hypoxia; R73.9 Hyperglycemia, unspecified; I10 Essential (primary) hypertension; I16.0 Hypertensive urgency; F11.10 Opioid abuse, uncomplicated; F12.10 Cannabis abuse, uncomplicated; F19.10 Other psychoactive substance abuse, uncomplicated; F17.210 Nicotine dependence, cigarettes, uncomplicated; R74.8 Abnormal levels of other serum enzymes; W19.XXXA Unspecified fall, initial encounter
CPT/HCPCS: 31500; 36556; 36600; 43753; 51702; 70450; 71045; 71275; 74177; 80048; 80053; 80202; 80307; 82140; 82550; 82805; 82948; 83605; 83735; 83880; 84100; 84132; 84443; 84484; 85007; 85025; 85027; 85610; 85730; 87015; 87040; 87070; 87102; 87116; 87205; 87206; 87449; 87641; 87804; 93005; 93306; 94002; 94003; 94150; 94640; 94664; 96361; 96374; 96375; 96376; J0330; J0360; J0456; J0692; J1644; J1940; J2060; J2250; J2270; J2543; J3010; J3370; J3480; J7030; J7040; J7050; Q9967